=== PATIENT | female | born 1955 | race Caucasian/White ===

== ENCOUNTER 2025-07-30 07:30 | Outpatient (RCR) | payer OTHER, MEDICARE, SELFPAY ==
--- NOTE | 2025-03-14 09:02 | PT.OIE ---
Current Diagnoses Pain in right hip (03/13/25) Sciatica, unspecified side (03/13/25) Vertebrogenic low back pain (03/13/25) Visit Care Team Role Provider Type Jamee Unger MD Attending Provider Non-Staff Primary Care Provider Referring Provider Specialty: Infectious Disease Internal Medicine Address: [address] [place] [id number], [id number] Email: Physical Therapy Initial Evaluation PT-OP-A Visit Information Start: 03/14/25 08:44 Freq: Status: Active Protocol: Document 03/13/25 15:15 KW (Rec: 03/14/25 09:02 KW Laptop) Out-Patient Physical Therapy Visit Information Visit Information Visit Type Initial Evaluation Visit Start Time 15:15 Visit Stop Time 16:00 Visit Number 10/08 Evaluation Information Evaluation Date 03/13/25 PT-OP-B Current Condition Start: 03/14/25 08:44 Freq: Status: Active Protocol: Document 03/13/25 15:15 KW (Rec: 03/14/25 09:02 KW Laptop) Current Condition History of Current Condition Onset Date October 2024 Current Complaints low back pain, right hip, right thigh, B calves,. B knee pain History of Current 70 yo retired female, comes to PT with low back pain, Condition hip pain that feels like an iron alistair thru her hip. She enjoys sailing with her . does not do formal exercise due to pain in knees. She is trying to loose weight so that she can qualify for knee replacements. Significant PMHx for 2002 C5/6 lami 2003 C5/6 fusion, 2006 gal bladder removede. 2007 developed R hand weakness. 5'4 282Lb PT-OP-C Subjective Start: 03/14/25 08:44 Freq: Status: Active Protocol: Document 03/13/25 15:15 KW (Rec: 03/14/25 09:02 KW Laptop) Patient Questionnaires Oswestry Low Back Index Oswestry Score 36 Oswestry Impairment 20 to 39% Impaired (Score 20-39) OP-PT Pain Assessment Location low back Intensity 4 Scale Used Numeric (0 - 10) Description Aching,Cramping,Pinching,Pulling Frequency Frequent Pain Aggravating Position,Changing Position,ADL's,Activity,Exercise Factors Pain Alleviating Cold,Heat,Medication,Inactivity Factors R hip Intensity 2 Scale Used Numeric (0 - 10) Description Aching,Cramping,Pinching,Pulling Frequency Frequent Pain Aggravating Changing Position,ADL's,Activity,Exercise,Standing, Factors Walking Pain Alleviating Cold,Heat,Medication,Inactivity Factors PT-OP-D Balance Start: 03/14/25 08:44 Freq: Status: Active Protocol: Document 03/13/25 15:15 KW (Rec: 03/14/25 09:02 KW Laptop) OP-PT Balance Assessment Standing Balance Static Standing Fair Balance Ability Dynamic Standing Fair Balance Ability Standing Balance challenge with tandem, narrow SUSANNA, unable to do head Comments turns Deleon Fall Scale Copyright Permission PT-OP-G Mobility & Gait Start: 03/14/25 08:44 Freq: Status: Active Protocol: Document 03/13/25 15:15 KW (Rec: 03/14/25 09:02 KW Laptop) OP Gait Assessment Gait Gait Assistance Independent Required: Assistive Devices Assistive Device None Gait Deviations General Gait Pattern Antalgic,Decreased Stride Length PT-OP-J Posture/Palpation/Skin Start: 03/14/25 08:44 Freq: Status: Active Protocol: Document 03/13/25 15:15 KW (Rec: 03/14/25 09:02 KW Laptop) Posture Evaluation Position Standing Evaluation View Lateral Head/C-Spine Posture Forward Head T-Spine Posture Increased Kyphosis L-Spine Posture Flattened Scapula Posture (L) Protracted,(R) Protracted Arm Posture (L) Internally Rotated,(R) Internally Rotated Weight Distribution Weight Shifted Right Knee Posture (L) Genu Varus,(R) Genu Varus Palpation Assessment Location right hip Palpation Location posterior R hip Palpation Findings Soft Tissue Tightness,Spasm,Muscle Guarding PT-OP-K Range of Motion Start: 03/14/25 08:44 Freq: Status: Active Protocol: Document 03/13/25 15:15 KW (Rec: 03/14/25 09:02 KW Laptop) Hip Goniometric Range of Motion Hip right Hip ROM WFL No Testing Position Supine Flexion w/Knee 90 Flexed Straight Leg Raise 75 Internal Rotation 10 External Rotation 40 Comments stiff at end range PT-OP-L Special Tests Start: 03/14/25 08:44 Freq: Status: Active Protocol: Document 03/13/25 15:15 KW (Rec: 03/14/25 09:02 KW Laptop) Special Tests Hip Special Tests CORIN Test Results positive PT-OP-M Strength Start: 03/14/25 08:44 Freq: Status: Active Protocol: Document 03/13/25 15:15 KW (Rec: 03/14/25 09:02 KW Laptop) Hip Strength Hip Manual Muscle Testing Right Flexion (L2) 4- Good- Extension (S1) 4- Good- Abduction 4- Good- External Rotation 4- Good- Knee Strength Knee Manual Muscle Testing Right Flexion (S2) 4- Good- Extension (L3) 4- Good- PT-OP-Q Treatments Start: 03/14/25 08:44 Freq: Status: Active Protocol: Document 03/13/25 15:15 KW (Rec: 03/14/25 09:02 KW Laptop) Therapeutic Exercises Supine Exercises hip stretches Supine Exercise Name CORIN, breathing, no handouts today Side right Self-Care/Home Management Treatment Education Patient Education Body Mechanics,Fall Risk,Home Exercise Program,Joint Protection,Pain Management,Posture Other Education shoe education, handouts issued PT-OP-T Assessment and Plan Start: 03/14/25 08:44 Freq: Status: Active Protocol: Document 03/13/25 15:15 KW (Rec: 03/14/25 09:02 KW Laptop) Physical Therapy Assessment Rehab Potential Rehabilitation Fair Potential Evaluation Complexity Number of Personal 3 or More Factors/ Comorbidities Number of Body 4 or More Systems Impaired Clinical Evolving Presentation at Evaluation Impairments Impairments Activity Tolerance,Balance,Functional Activities, Functional Mobility,Gait,Pain,Posture,ROM,Strength Goals Three Impairment impaired R hip strength Short Term Goal (STG R hip strength improves to 4/5 ) STG Duration 6 weeks Two Impairment pain with walking Short Term Goal (STG patient with 50% improved R hip and LBP with walking ) STG Duration 6 weeks One Impairment lack of HEP Short Term Goal (STG patient demonstrates indep with HEP ) STG Duration 6 weeks Assessment Summary Assessment 70 yo sedentary female, presents to PT with co LBP, R hip pain. She will benefit from skilled PT to address deficits in ROM, strength in order to reduce pain and maximize function. Physical Therapy Plan Frequency and Duration Frequency of 1x/Week Treatment Duration of 6 treatment (weeks) Plan of Care Start 03/14/25 Date Plan of Care End 05/14/25 Date Therapeutic Interventions Therapeutic Balance Training,Gait Training,Home Exercise Program, Interventions Joint Mobilizations,Manual Therapy,Neuromuscular Re- education,Patient/Caregiver Education,Self-Care/Home Management,Soft Tissue Mobilization,Taping,Therapeutic Activities,Therapeutic Exercises Modalities Cold Pack/Ice Massage,Electric Stimulation,Hot Packs, Ultrasound Next Visit Focus/Plan Next Note Type Treatment Note Next Visit Plan nu step // bars balance HEP: mobility, strength add hip abd,band, needs handout
--- NOTE | 2025-03-15 16:22 | PT.OTN ---
Current Diagnoses Pain in right hip (03/15/25) Sciatica, unspecified side (03/15/25) Vertebrogenic low back pain (03/15/25) Physical Therapy Treatment Note PT-OP-A Visit Information Start: 03/14/25 08:44 Freq: Status: Active Protocol: Document 03/15/25 16:18 KW (Rec: 03/15/25 16:22 KW Laptop) Out-Patient Physical Therapy Visit Information Visit Information Visit Type Treatment Note Visit Start Time 15:15 Visit Stop Time 06:00 Visit Number 2/6 Evaluation Information Evaluation Date 03/13/25 PT-OP-B Current Condition Start: 03/14/25 08:44 Freq: Status: Active Protocol: Document 03/13/25 15:15 KW (Rec: 03/14/25 09:02 KW Laptop) Current Condition History of Current Condition Onset Date October 2024 Current Complaints low back pain, right hip, right thigh, B calves,. B knee pain History of Current 70 yo retired female, comes to PT with low back pain, Condition hip pain that feels like an iron alistair thru her hip. She enjoys sailing with her . does not do formal exercise due to pain in knees. She is trying to loose weight so that she can qualify for knee replacements. Significant PMHx for 2001 C5/6 lami 2003 C5/6 fusion, 2006 gal bladder removede. 2007 developed R hand weakness. 5'4 282Lb PT-OP-C Subjective Start: 03/14/25 08:44 Freq: Status: Active Protocol: Document 03/15/25 16:18 KW (Rec: 03/15/25 16:22 KW Laptop) Patient Questionnaires Oswestry Low Back Index Oswestry Score 36 Oswestry Impairment 20 to 39% Impaired (Score 20-39) OP-PT Pain Assessment Location low back Intensity 2 Scale Used Numeric (0 - 10) Description Aching,Cramping,Pinching,Pulling Frequency Frequent Pain Aggravating Position,Changing Position,ADL's,Activity,Exercise Factors Pain Alleviating Cold,Heat,Medication,Inactivity Factors R hip Intensity 2 Scale Used Numeric (0 - 10) Description Aching,Cramping,Pinching,Pulling Frequency Frequent Pain Aggravating Changing Position,ADL's,Activity,Exercise,Standing, Factors Walking Pain Alleviating Cold,Heat,Medication,Inactivity Factors PT-OP-D Balance Start: 03/14/25 08:44 Freq: Status: Active Protocol: Document 03/13/25 15:15 KW (Rec: 03/14/25 09:02 KW Laptop) OP-PT Balance Assessment Standing Balance Static Standing Fair Balance Ability Dynamic Standing Fair Balance Ability Standing Balance challenge with tandem, narrow SUSANNA, unable to do head Comments turns Deleon Fall Scale Copyright Permission PT-OP-G Mobility & Gait Start: 03/14/25 08:44 Freq: Status: Active Protocol: Document 03/13/25 15:15 KW (Rec: 03/14/25 09:02 KW Laptop) OP Gait Assessment Gait Gait Assistance Independent Required: Assistive Devices Assistive Device None Gait Deviations General Gait Pattern Antalgic,Decreased Stride Length PT-OP-J Posture/Palpation/Skin Start: 03/14/25 08:44 Freq: Status: Active Protocol: Document 03/13/25 15:15 KW (Rec: 03/14/25 09:02 KW Laptop) Posture Evaluation Position Standing Evaluation View Lateral Head/C-Spine Posture Forward Head T-Spine Posture Increased Kyphosis L-Spine Posture Flattened Scapula Posture (L) Protracted,(R) Protracted Arm Posture (L) Internally Rotated,(R) Internally Rotated Weight Distribution Weight Shifted Right Knee Posture (L) Genu Varus,(R) Genu Varus Palpation Assessment Location right hip Palpation Location posterior R hip Palpation Findings Soft Tissue Tightness,Spasm,Muscle Guarding PT-OP-K Range of Motion Start: 03/14/25 08:44 Freq: Status: Active Protocol: Document 03/13/25 15:15 KW (Rec: 03/14/25 09:02 KW Laptop) Hip Goniometric Range of Motion Hip right Hip ROM WFL No Testing Position Supine Flexion w/Knee 90 Flexed Straight Leg Raise 75 Internal Rotation 10 External Rotation 40 Comments stiff at end range PT-OP-L Special Tests Start: 03/14/25 08:44 Freq: Status: Active Protocol: Document 03/13/25 15:15 KW (Rec: 03/14/25 09:02 KW Laptop) Special Tests Hip Special Tests CORIN Test Results positive PT-OP-M Strength Start: 03/14/25 08:44 Freq: Status: Active Protocol: Document 03/13/25 15:15 KW (Rec: 03/14/25 09:02 KW Laptop) Hip Strength Hip Manual Muscle Testing Right Flexion (L2) 4- Good- Extension (S1) 4- Good- Abduction 4- Good- External Rotation 4- Good- Knee Strength Knee Manual Muscle Testing Right Flexion (S2) 4- Good- Extension (L3) 4- Good- PT-OP-Q Treatments Start: 03/14/25 08:44 Freq: Status: Active Protocol: Document 03/15/25 16:18 KW (Rec: 03/15/25 16:22 KW Laptop) Therapeutic Exercises Supine Exercises hip stretches Supine Exercise Name CORIN, breathing, patient brings in prior handouts from prior PT - reviewed Side right Manual Therapy Treatment Consent Patient gave verbal Yes consent for manual treatment Soft Tissue Mobilization R hip lumbar spine Body Location R hip, lumbar spine Mobilization Type Cross-Friction,Myofascial Release,Strain/Counterstrain, Sustained Pressure,Trigger Point Release Comments tennis ball to posterior hpi Joint Mobilizations R hip Joint R hip Direction inferior/lateral Grade III Body Position Supine Reps/Duration 5 min Comments good relief Self-Care/Home Management Treatment Education Patient Education Body Mechanics,Fall Risk,Home Exercise Program,Joint Protection,Pain Management,Posture Other Education shoe education, handouts issued, heel lock lacing technique PT-OP-T Assessment and Plan Start: 03/14/25 08:44 Freq: Status: Active Protocol: Document 03/15/25 16:18 KW (Rec: 03/15/25 16:22 KW Laptop) Physical Therapy Assessment Rehab Potential Rehabilitation Fair Potential Evaluation Complexity Number of Personal 3 or More Factors/ Comorbidities Number of Body 4 or More Systems Impaired Clinical Evolving Presentation at Evaluation Impairments Impairments Activity Tolerance,Balance,Functional Activities, Functional Mobility,Gait,Pain,Posture,ROM,Strength Goals Three Impairment impaired R hip strength Short Term Goal (STG R hip strength improves to 4/5 ) STG Duration 6 weeks Two Impairment pain with walking Short Term Goal (STG patient with 50% improved R hip and LBP with walking ) STG Duration 6 weeks One Impairment lack of HEP Short Term Goal (STG patient demonstrates indep with HEP ) STG Duration 6 weeks Assessment Summary Assessment improved relief R hip post Rx walking more secure with shoe lacing Physical Therapy Plan Frequency and Duration Frequency of 1x/Week Treatment Duration of 6 treatment (weeks) Plan of Care Start 03/14/25 Date Plan of Care End 05/14/25 Date Therapeutic Interventions Therapeutic Balance Training,Gait Training,Home Exercise Program, Interventions Joint Mobilizations,Manual Therapy,Neuromuscular Re- education,Patient/Caregiver Education,Self-Care/Home Management,Soft Tissue Mobilization,Taping,Therapeutic Activities,Therapeutic Exercises Modalities Cold Pack/Ice Massage,Electric Stimulation,Hot Packs, Ultrasound Next Visit Focus/Plan Next Note Type Treatment Note Next Visit Plan nu step // bars balance HEP: mobility, strength add hip abd,band, needs handout
--- NOTE | 2025-03-18 09:36 | PT-OP ANOTE ---
Pt called and cancelled today's appt in advance. [employer] left message inquiring of cancelled appt and mentioned there are openings can reschedule today's appt, please call back. Reminded next appt scheduled 03/28 with PT. PER[employer] DEVELOPER also mentioned sent a message up to schedulers to add more appts 1x/wk into end April per POC written.
--- NOTE | 2025-03-28 10:27 | PT.OTN ---
Current Diagnoses Pain in right hip (03/28/25) Sciatica, unspecified side (03/28/25) Vertebrogenic low back pain (03/28/25) Physical Therapy Treatment Note PT-OP-A Visit Information Start: 03/14/25 08:44 Freq: Status: Active Protocol: Document 03/28/25 10:07 KW (Rec: 03/28/25 10:27 KW Laptop) Out-Patient Physical Therapy Visit Information Visit Information Visit Type Treatment Note Visit Start Time 09:45 Visit Stop Time 10:30 Visit Number 3/6 Evaluation Information Evaluation Date 03/13/25 PT-OP-B Current Condition Start: 03/14/25 08:44 Freq: Status: Active Protocol: Document 03/13/25 15:15 KW (Rec: 03/14/25 09:02 KW Laptop) Current Condition History of Current Condition Onset Date October 2024 Current Complaints low back pain, right hip, right thigh, B calves,. B knee pain History of Current 70 yo retired female, comes to PT with low back pain, Condition hip pain that feels like an iron alistair thru her hip. She enjoys sailing with her . does not do formal exercise due to pain in knees. She is trying to loose weight so that she can qualify for knee replacements. Significant PMHx for 2001 C5/6 lami 2003 C5/6 fusion, 2006 gal bladder removede. 2007 developed R hand weakness. 5'4 282Lb PT-OP-C Subjective Start: 03/14/25 08:44 Freq: Status: Active Protocol: Document 03/28/25 10:07 KW (Rec: 03/28/25 10:27 KW Laptop) Patient Questionnaires Oswestry Low Back Index Oswestry Score 36 Oswestry Impairment 20 to 39% Impaired (Score 20-39) OP-PT Pain Assessment Location low back Intensity 2 Scale Used Numeric (0 - 10) Description Aching,Cramping,Pinching,Pulling Frequency Frequent Pain Aggravating Position,Changing Position,ADL's,Activity,Exercise Factors Pain Alleviating Cold,Heat,Medication,Inactivity Factors R hip Intensity 2 Scale Used Numeric (0 - 10) Description Aching,Cramping,Pinching,Pulling Frequency Frequent Pain Aggravating Changing Position,ADL's,Activity,Exercise,Standing, Factors Walking Pain Alleviating Cold,Heat,Medication,Inactivity Factors PT-OP-D Balance Start: 03/14/25 08:44 Freq: Status: Active Protocol: Document 03/13/25 15:15 KW (Rec: 03/14/25 09:02 KW Laptop) OP-PT Balance Assessment Standing Balance Static Standing Fair Balance Ability Dynamic Standing Fair Balance Ability Standing Balance challenge with tandem, narrow SUSANNA, unable to do head Comments turns Deleon Fall Scale Copyright Permission PT-OP-G Mobility & Gait Start: 03/14/25 08:44 Freq: Status: Active Protocol: Document 03/13/25 15:15 KW (Rec: 03/14/25 09:02 KW Laptop) OP Gait Assessment Gait Gait Assistance Independent Required: Assistive Devices Assistive Device None Gait Deviations General Gait Pattern Antalgic,Decreased Stride Length PT-OP-J Posture/Palpation/Skin Start: 03/14/25 08:44 Freq: Status: Active Protocol: Document 03/13/25 15:15 KW (Rec: 03/14/25 09:02 KW Laptop) Posture Evaluation Position Standing Evaluation View Lateral Head/C-Spine Posture Forward Head T-Spine Posture Increased Kyphosis L-Spine Posture Flattened Scapula Posture (L) Protracted,(R) Protracted Arm Posture (L) Internally Rotated,(R) Internally Rotated Weight Distribution Weight Shifted Right Knee Posture (L) Genu Varus,(R) Genu Varus Palpation Assessment Location right hip Palpation Location posterior R hip Palpation Findings Soft Tissue Tightness,Spasm,Muscle Guarding PT-OP-K Range of Motion Start: 03/14/25 08:44 Freq: Status: Active Protocol: Document 03/13/25 15:15 KW (Rec: 03/14/25 09:02 KW Laptop) Hip Goniometric Range of Motion Hip right Hip ROM WFL No Testing Position Supine Flexion w/Knee 90 Flexed Straight Leg Raise 75 Internal Rotation 10 External Rotation 40 Comments stiff at end range PT-OP-L Special Tests Start: 03/14/25 08:44 Freq: Status: Active Protocol: Document 03/13/25 15:15 KW (Rec: 03/14/25 09:02 KW Laptop) Special Tests Hip Special Tests CORIN Test Results positive PT-OP-M Strength Start: 03/14/25 08:44 Freq: Status: Active Protocol: Document 03/13/25 15:15 KW (Rec: 03/14/25 09:02 KW Laptop) Hip Strength Hip Manual Muscle Testing Right Flexion (L2) 4- Good- Extension (S1) 4- Good- Abduction 4- Good- External Rotation 4- Good- Knee Strength Knee Manual Muscle Testing Right Flexion (S2) 4- Good- Extension (L3) 4- Good- PT-OP-Q Treatments Start: 03/14/25 08:44 Freq: Status: Active Protocol: Document 03/28/25 10:07 KW (Rec: 03/28/25 10:27 KW Laptop) Therapeutic Exercises Supine Exercises CORE stabilization Supine Exercise Name supine marching, bent knee fall outs, heel slides Reps/Minutes 30 sec each Comments cues for breathing strap stretch Supine Exercise Name hamstring stretch with ankle pump physioball Supine Exercise Name supine hamstring curls, LTR, bridge hip stretches Supine Exercise Name CORIN, breathing, patient brings in prior handouts from prior PT - reviewed Side right Sidelying Exercises open book Sidelying Exercise open book with top leg on bolster - handout issued Name Reps/Minutes 10 Comments coordinated breathing Manual Therapy Treatment Consent Patient gave verbal Yes consent for manual treatment Soft Tissue Mobilization R hip lumbar spine Body Location R hip, lumbar spine Mobilization Type Cross-Friction,Myofascial Release,Strain/Counterstrain, Sustained Pressure,Trigger Point Release Comments manual supported Thoracic rotation with open book exercise Joint Mobilizations R hip Joint R hip Direction inferior/lateral Grade III Body Position Supine Reps/Duration 5 min Comments good relief Self-Care/Home Management Treatment Education Patient Education Body Mechanics,Fall Risk,Home Exercise Program,Joint Protection,Pain Management,Posture Other Education bed positioning to reduce muscle cramps PT-OP-T Assessment and Plan Start: 03/14/25 08:44 Freq: Status: Active Protocol: Document 03/28/25 10:07 KW (Rec: 03/28/25 10:27 KW Laptop) Physical Therapy Assessment Rehab Potential Rehabilitation Fair Potential Evaluation Complexity Number of Personal 3 or More Factors/ Comorbidities Number of Body 4 or More Systems Impaired Clinical Evolving Presentation at Evaluation Impairments Impairments Activity Tolerance,Balance,Functional Activities, Functional Mobility,Gait,Pain,Posture,ROM,Strength Goals Three Impairment impaired R hip strength Short Term Goal (STG R hip strength improves to 4/5 ) STG Duration 6 weeks Two Impairment pain with walking Short Term Goal (STG patient with 50% improved R hip and LBP with walking ) STG Duration 6 weeks One Impairment lack of HEP Short Term Goal (STG patient demonstrates indep with HEP ) STG Duration 6 weeks Assessment Summary Assessment R shoulder pain has relieved for today R hip pain significantly improved no pain during ther-ex, bed mobility, sit to stand or ambulation today Physical Therapy Plan Frequency and Duration Frequency of 1x/Week Treatment Duration of 6 treatment (weeks) Plan of Care Start 03/14/25 Date Plan of Care End 05/14/25 Date Therapeutic Interventions Therapeutic Balance Training,Gait Training,Home Exercise Program, Interventions Joint Mobilizations,Manual Therapy,Neuromuscular Re- education,Patient/Caregiver Education,Self-Care/Home Management,Soft Tissue Mobilization,Taping,Therapeutic Activities,Therapeutic Exercises Modalities Cold Pack/Ice Massage,Electric Stimulation,Hot Packs, Ultrasound Next Visit Focus/Plan Next Note Type Treatment Note Next Visit Plan nu step // bars balance HEP: mobility, strength add hip abd,band, needs handout
--- NOTE | 2025-04-02 09:00 | PT.OTN ---
Current Diagnoses Pain in right hip (04/02/25) Sciatica, unspecified side (04/02/25) Vertebrogenic low back pain (04/02/25) Physical Therapy Treatment Note PT-OP-A Visit Information Start: 03/14/25 08:44 Freq: Status: Active Protocol: Document 04/02/25 08:20 SP (Rec: 04/02/25 09:02 SP [id number]) Out-Patient Physical Therapy Visit Information Visit Information Visit Type Treatment Note Visit Start Time 08:20 Visit Stop Time 09:00 Visit Number 4/6 Number of STATE MANAGER Visits 1 Evaluation Information Evaluation Date 03/13/25 PT-OP-B Current Condition Start: 03/14/25 08:44 Freq: Status: Active Protocol: Document 03/13/25 15:15 KW (Rec: 03/14/25 09:02 KW Laptop) Current Condition History of Current Condition Onset Date chronic, October 2024 Current Complaints low back pain, right hip, right thigh, B calves,. B knee pain History of Current 70 yo retired female, comes to PT with low back pain, Condition hip pain that feels like an iron alistair thru her hip. She enjoys sailing with her . does not do formal exercise due to pain in knees. She is trying to loose weight so that she can qualify for knee replacements. Significant PMHx for 2001 C5/6 lami 2003 C5/6 fusion, 2006 gal bladder removede. 2007 developed R hand weakness. 5'4 282Lb PT-OP-C Subjective Start: 03/14/25 08:44 Freq: Status: Active Protocol: Document 04/02/25 08:20 SP (Rec: 04/02/25 09:02 SP [id number]) OP-PT Subjective Patient Comments Patient Comments Pt arrives with R lateral hip down anterolateral thigh and low back discomfort had spasms at night, took muscle relaxers to help. She states compliant with HEP. PT-OP-D Balance Start: 03/14/25 08:44 Freq: Status: Active Protocol: Document 03/13/25 15:15 KW (Rec: 03/14/25 09:02 KW Laptop) OP-PT Balance Assessment Standing Balance Static Standing Fair Balance Ability Dynamic Standing Fair Balance Ability Standing Balance challenge with tandem, narrow SUSANNA, unable to do head Comments turns Deleon Fall Scale Copyright Permission PT-OP-G Mobility & Gait Start: 03/14/25 08:44 Freq: Status: Active Protocol: Document 03/13/25 15:15 KW (Rec: 03/14/25 09:02 KW Laptop) OP Gait Assessment Gait Gait Assistance Independent Required: Assistive Devices Assistive Device None Gait Deviations General Gait Pattern Antalgic,Decreased Stride Length PT-OP-J Posture/Palpation/Skin Start: 03/14/25 08:44 Freq: Status: Active Protocol: Document 03/13/25 15:15 KW (Rec: 03/14/25 09:02 KW Laptop) Posture Evaluation Position Standing Evaluation View Lateral Head/C-Spine Posture Forward Head T-Spine Posture Increased Kyphosis L-Spine Posture Flattened Scapula Posture (L) Protracted,(R) Protracted Arm Posture (L) Internally Rotated,(R) Internally Rotated Weight Distribution Weight Shifted Right Knee Posture (L) Genu Varus,(R) Genu Varus Palpation Assessment Location right hip Palpation Location posterior R hip Palpation Findings Soft Tissue Tightness,Spasm,Muscle Guarding PT-OP-K Range of Motion Start: 03/14/25 08:44 Freq: Status: Active Protocol: Document 03/13/25 15:15 KW (Rec: 03/14/25 09:02 KW Laptop) Hip Goniometric Range of Motion Hip right Hip ROM WFL No Testing Position Supine Flexion w/Knee 90 Flexed Straight Leg Raise 75 Internal Rotation 10 External Rotation 40 Comments stiff at end range PT-OP-L Special Tests Start: 03/14/25 08:44 Freq: Status: Active Protocol: Document 03/13/25 15:15 KW (Rec: 03/14/25 09:02 KW Laptop) Special Tests Hip Special Tests CORIN Test Results positive PT-OP-M Strength Start: 03/14/25 08:44 Freq: Status: Active Protocol: Document 03/13/25 15:15 KW (Rec: 03/14/25 09:02 KW Laptop) Hip Strength Hip Manual Muscle Testing Right Flexion (L2) 4- Good- Extension (S1) 4- Good- Abduction 4- Good- External Rotation 4- Good- Knee Strength Knee Manual Muscle Testing Right Flexion (S2) 4- Good- Extension (L3) 4- Good- PT-OP-Q Treatments Start: 03/14/25 08:44 Freq: Status: Active Protocol: Document 04/02/25 08:20 SP (Rec: 04/02/25 09:02 SP [id number]) Therapeutic Exercises Supine Exercises bridge Supine Exercise Name trialed AB brace vs segmental- added to HEP with HO Reps/Minutes 10 reps Sathya Stretch Supine Exercise Name reviewed self Ex Side right Reps/Minutes 30-60 sec Comments if toleranted, neutral LS pelvic tilts Supine Exercise Name warm up pre get out of bed Reps/Minutes 10 Comments fwd/bwd/lateral LTR Supine Exercise Name warm up pre out of bed- with HO Side bilateral Reps/Minutes 10 Comments 1. level pelvis on bed 2. Off 1side stretch CORE stabilization Supine Exercise Name supine marching, bent knee fall outs, heel slides- reviewed and added HO Resistance AROM Reps/Minutes 30 sec each alternating Comments cues PPT level pelvis on table, slow breath with exhale strap stretch Comments discussed, not performed, next review and add ITB stretch if beneficial Gait Training Gait Activity High knee stepping Description initiated high knee stepping Distance/Duration front mirror 10 ft x3 lengths Treatment Focus SLS stability during gait, core and hip abd engagement Comments cued trunk&ribcage elevation, TA draw in, tall over stance LE and soft stepping heel toe improved stability Manual Therapy Treatment Consent Patient gave verbal Yes consent for manual treatment Soft Tissue Mobilization R hip lumbar spine Body Location R ITB, TFL, piriformis, glut med, glut max, QL, LS paraspinal, oblique Mobilization Type Myofascial Release,Rolling,Sustained Pressure,Other Body Position L SL Comments manual STMs with education self ball wall and rolling pin. Joint Mobilizations R hip Joint R hip- PNF Grade II Body Position L SL Comments manual facilitation then resisted: anterior elevation/ posterior depression- decrease R low back and hip tightness and fac core and glut engagement PNF Self-Care/Home Management Treatment Education Patient Education Body Mechanics,Joint Protection,Pain Management,Posture Other Education Education on anatomy of back, hip and mechanics with core facilitation, ROM and self massage to support gait balance progression. Improved understanding ther ex selection and importance of carryover home performance. PT-OP-T Assessment and Plan Start: 03/14/25 08:44 Freq: Status: Active Protocol: Document 04/02/25 08:20 SP (Rec: 04/02/25 09:02 SP [id number]) Physical Therapy Assessment Goals Three Impairment impaired R hip strength Short Term Goal (STG R hip strength improves to 4/5 ) STG Duration 6 weeks Two Impairment pain with walking Short Term Goal (STG patient with 50% improved R hip and LBP with walking ) STG Duration 6 weeks One Impairment lack of HEP Short Term Goal (STG patient demonstrates indep with HEP ) STG Duration 6 weeks Assessment Summary Assessment Pt good feedback response to manual STMs, AAROM then resisted PNF anteromedial and posterior depression R hip. Much education on anatomy and mechanics of core and hip mobility for ROM when hurting, walking and balance progression by end of tx. Provided HOs for added warm up trunk and hip mobility and reviewed core progression HEP with additional HOs. Instruction carryover in PT for applying posture and core engagement improved balance high knee stepping. Better understood for community gait. Physical Therapy Plan Frequency and Duration Frequency of 1x/Week Treatment Duration of 6 treatment (weeks) Plan of Care Start 03/14/25 Date Plan of Care End 05/14/25 Date Therapeutic Interventions Therapeutic Balance Training,Gait Training,Home Exercise Program, Interventions Joint Mobilizations,Manual Therapy,Neuromuscular Re- education,Patient/Caregiver Education,Self-Care/Home Management,Soft Tissue Mobilization,Taping,Therapeutic Activities,Therapeutic Exercises Modalities Cold Pack/Ice Massage,Electric Stimulation,Hot Packs, Ultrasound Next Visit Focus/Plan Next Note Type Treatment Note Next Visit Plan Recheck HEP, ROM/stretching/core progression. POC: warm up nu step // bars balance HEP: mobility, strength add hip abd,band, needs handout
--- NOTE | 2025-04-11 09:02 | PT.OTN ---
Current Diagnoses Pain in right hip (04/11/25) Sciatica, unspecified side (04/11/25) Vertebrogenic low back pain (04/11/25) Physical Therapy Treatment Note PT-OP-A Visit Information Start: 03/14/25 08:44 Freq: Status: Active Protocol: Document 04/11/25 07:40 KW (Rec: 04/11/25 09:02 KW Laptop) Out-Patient Physical Therapy Visit Information Visit Information Visit Type Progress Note Visit Start Time 07:30 Visit Stop Time 08:15 Visit Number 5/6 Evaluation Information Evaluation Date 03/13/25 PT-OP-B Current Condition Start: 03/14/25 08:44 Freq: Status: Active Protocol: Document 04/11/25 07:40 KW (Rec: 04/11/25 09:02 KW Laptop) Current Condition History of Current Condition Onset Date October 2024 Current Complaints low back pain, right hip, right thigh, B calves,. B knee pain History of Current 70 yo retired female, comes to PT with low back pain, Condition hip pain that feels like an iron alistair thru her hip. She enjoys sailing with her . does not do formal exercise due to pain in knees. She is trying to loose weight so that she can qualify for knee replacements. Significant PMHx for 2002 C5/6 lami 2004 C5/6 fusion, 2006 gal bladder removede. 2007 developed R hand weakness. 5'4 282Lb PT-OP-C Subjective Start: 03/14/25 08:44 Freq: Status: Active Protocol: Document 04/11/25 07:40 KW (Rec: 04/11/25 09:02 KW Laptop) OP-PT Subjective Patient Comments Patient Comments is spending more time on the sailboat. R hip is feeling much better. is feeling more balanced with walking. Patient Questionnaires Oswestry Low Back Index Oswestry Score 20 Oswestry Impairment 20 to 39% Impaired (Score 20-39) OP-PT Pain Assessment Location low back Intensity 1 Scale Used Numeric (0 - 10) Description Aching,Cramping,Pinching,Pulling Frequency Frequent Pain Aggravating Position,Changing Position,ADL's,Activity,Exercise Factors Pain Alleviating Cold,Heat,Medication,Inactivity Factors R hip Intensity 1 Scale Used Numeric (0 - 10) Description Aching,Cramping,Pinching,Pulling Frequency Frequent Pain Aggravating Changing Position,ADL's,Activity,Exercise,Standing, Factors Walking Pain Alleviating Cold,Heat,Medication,Inactivity Factors PT-OP-D Balance Start: 03/14/25 08:44 Freq: Status: Active Protocol: Document 04/11/25 07:40 KW (Rec: 04/11/25 09:02 KW Laptop) OP-PT Balance Assessment Standing Balance Static Standing Good Balance Ability Dynamic Standing Good Balance Ability Standing Balance challenge with tandem, narrow SUSANNA, unable to do head Comments turns - improving with better spinal/rib cage alignment Deleon Fall Scale Copyright Permission PT-OP-G Mobility & Gait Start: 03/14/25 08:44 Freq: Status: Active Protocol: Document 04/11/25 07:40 KW (Rec: 04/11/25 09:02 KW Laptop) OP Gait Assessment Gait Gait Assistance Independent Required: Assistive Devices Assistive Device None Gait Deviations General Gait Pattern Antalgic,Decreased Stride Length Comments Gait Comments improving with arm swing, counter rotation, alternating and reciprocal gait PT-OP-J Posture/Palpation/Skin Start: 03/14/25 08:44 Freq: Status: Active Protocol: Document 04/11/25 07:40 KW (Rec: 04/11/25 09:02 KW Laptop) Posture Evaluation Position Standing Evaluation View Lateral Head/C-Spine Posture Forward Head T-Spine Posture Increased Kyphosis L-Spine Posture Neutral,Flattened Scapula Posture (L) Protracted,(R) Protracted Arm Posture (L) Internally Rotated,(R) Internally Rotated Weight Distribution Weight Shifted Right Knee Posture (L) Genu Varus,(R) Genu Varus Palpation Assessment Location right hip Palpation Location posterior R hip Palpation Findings Soft Tissue Tightness,Spasm,Muscle Guarding PT-OP-K Range of Motion Start: 03/14/25 08:44 Freq: Status: Active Protocol: Document 04/11/25 07:40 KW (Rec: 04/11/25 09:02 KW Laptop) Hip Goniometric Range of Motion Hip right Hip ROM WFL No Testing Position Supine Flexion w/Knee 95 Flexed Straight Leg Raise 80 Internal Rotation 20 External Rotation 45 Comments stiff at end range - improving PT-OP-L Special Tests Start: 03/14/25 08:44 Freq: Status: Active Protocol: Document 04/11/25 07:40 KW (Rec: 04/11/25 09:02 KW Laptop) Special Tests Hip Special Tests CORIN Test Results (-) PT-OP-M Strength Start: 03/14/25 08:44 Freq: Status: Active Protocol: Document 04/11/25 07:40 KW (Rec: 04/11/25 09:02 KW Laptop) Hip Strength Hip Manual Muscle Testing Right Flexion (L2) 4 Good Extension (S1) 4 Good Abduction 4 Good External Rotation 4 Good Knee Strength Knee Manual Muscle Testing Right Flexion (S2) 4 Good Extension (L3) 4 Good PT-OP-Q Treatments Start: 03/14/25 08:44 Freq: Status: Active Protocol: Document 04/11/25 07:40 KW (Rec: 04/11/25 09:02 KW Laptop) Therapeutic Exercises Supine Exercises bridge Supine Exercise Name trialed AB brace vs segmental- added to HEP with HO Reps/Minutes 10 reps Sathya Stretch Supine Exercise Name reviewed self Ex Side right Reps/Minutes 30-60 sec Comments if toleranted, neutral LS pelvic tilts Supine Exercise Name warm up pre get out of bed Reps/Minutes 10 Comments fwd/bwd/lateral LTR Supine Exercise Name warm up pre out of bed- with HO Side bilateral Reps/Minutes 10 Comments 1. level pelvis on bed 2. Off 1side stretch CORE stabilization Supine Exercise Name supine marching, bent knee fall outs, heel slides- reviewed and added HO Resistance AROM Reps/Minutes 30 sec each alternating Comments cues PPT level pelvis on table, slow breath with exhale strap stretch Comments discussed, not performed, next review and add ITB stretch if beneficial physioball Supine Exercise Name supine hamstring curls, LTR, bridge hip stretches Supine Exercise Name CORIN, breathing, patient brings in prior handouts from prior PT - reviewed Side right Sidelying Exercises open book Sidelying Exercise open book with top leg on bolster - handout issued Name Reps/Minutes 10 Comments coordinated breathing Manual Therapy Treatment Consent Patient gave verbal Yes consent for manual treatment Soft Tissue Mobilization R hip lumbar spine Body Location R ITB, TFL, piriformis, glut med, glut max, QL, LS paraspinal, oblique Mobilization Type Myofascial Release,Rolling,Sustained Pressure,Other Body Position L SL Comments manual STMs with education self ball wall and rolling pin. Joint Mobilizations R hip Joint R hip- PNF Grade II Body Position L SL Comments manual facilitation then resisted: anterior elevation/ posterior depression- decrease R low back and hip tightness and fac core and glut engagement PNF Self-Care/Home Management Treatment Education Patient Education Body Mechanics,Joint Protection,Pain Management,Posture Other Education continued Education on ribs, spine, hip anatomy and relationship anatomy of back, hip and mechanics with core facilitation, ROM and self massage to support gait balance progression. Improved understanding ther ex selection and importance of carryover home performance. PT-OP-T Assessment and Plan Start: 03/14/25 08:44 Freq: Status: Active Protocol: Document 04/11/25 07:40 KW (Rec: 04/11/25 09:02 KW Laptop) Physical Therapy Assessment Rehab Potential Rehabilitation Fair Potential Evaluation Complexity Number of Personal 3 or More Factors/ Comorbidities Number of Body 4 or More Systems Impaired Clinical Evolving Presentation at Evaluation Impairments Impairments Activity Tolerance,Balance,Functional Activities, Functional Mobility,Gait,Pain,Posture,ROM,Strength Goals Three Impairment impaired R hip strength Short Term Goal (STG R hip strength improves to 4/5 ) STG Duration 6 weeks Two Impairment pain with walking Short Term Goal (STG patient with 50% improved R hip and LBP with walking ) STG Duration 6 weeks One Impairment lack of HEP Short Term Goal (STG patient demonstrates indep with HEP ) STG Duration 6 weeks Assessment Summary Assessment Improving pain, ROM, strength, balance, CORE stability, breath work - recommend con't PT 6 sessions for advancing more upright dynamic stability Pt good feedback response to manual STMs, AAROM then resisted PNF anteromedial and posterior depression R hip. Much education on anatomy and mechanics of core and hip mobility for ROM when hurting, walking and balance progression by end of tx. Provided HOs for added warm up trunk and hip mobility and reviewed core progression HEP with additional HOs. Instruction carryover in PT for applying posture and core engagement improved balance high knee stepping. Better understood for community gait. Physical Therapy Plan Frequency and Duration Frequency of 1x/Week Treatment Duration of 6 treatment (weeks) Plan of Care Start 03/14/25 Date Plan of Care End 05/14/25 Date Therapeutic Interventions Therapeutic Balance Training,Gait Training,Home Exercise Program, Interventions Joint Mobilizations,Manual Therapy,Neuromuscular Re- education,Patient/Caregiver Education,Self-Care/Home Management,Soft Tissue Mobilization,Taping,Therapeutic Activities,Therapeutic Exercises Modalities Cold Pack/Ice Massage,Electric Stimulation,Hot Packs, Ultrasound Next Visit Focus/Plan Next Note Type Treatment Note Next Visit Plan Recheck HEP, ROM/stretching/core progression. POC: warm up nu step // bars balance HEP: mobility, strength add hip abd,band, needs handout
--- NOTE | 2025-04-17 14:07 | PT.OTN ---
Current Diagnoses Pain in right hip (04/17/25) Sciatica, unspecified side (04/17/25) Vertebrogenic low back pain (04/17/25) Physical Therapy Treatment Note PT-OP-A Visit Information Start: 03/14/25 08:44 Freq: Status: Active Protocol: Document 04/17/25 13:53 KW (Rec: 04/17/25 14:07 KW Laptop) Out-Patient Physical Therapy Visit Information Visit Information Visit Type Treatment Note Visit Start Time 13:50 Visit Stop Time 14:30 Visit Number 03/08 Evaluation Information Evaluation Date 03/13/25 PT-OP-B Current Condition Start: 03/14/25 08:44 Freq: Status: Active Protocol: Document 04/11/25 07:40 KW (Rec: 04/11/25 09:02 KW Laptop) Current Condition History of Current Condition Onset Date October 2024 Current Complaints low back pain, right hip, right thigh, B calves,. B knee pain History of Current 70 yo retired female, comes to PT with low back pain, Condition hip pain that feels like an iron alistair thru her hip. She enjoys sailing with her . does not do formal exercise due to pain in knees. She is trying to loose weight so that she can qualify for knee replacements. Significant PMHx for 2002 C5/6 lami 2003 C5/6 fusion, 2006 gal bladder removede. 2007 developed R hand weakness. 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 Wants to build up stamina Patient Questionnaires Oswestry Low Back Index Oswestry Score 20 Oswestry Impairment 20 to 39% Impaired (Score 20-39) OP-PT Pain Assessment Location low back Intensity 1 Scale Used Numeric (0 - 10) Description Aching,Cramping,Pinching,Pulling Frequency Frequent Pain Aggravating Position,Changing Position,ADL's,Activity,Exercise Factors Pain Alleviating Cold,Heat,Medication,Inactivity Factors R hip Intensity 1 Scale Used Numeric (0 - 10) Description Aching,Cramping,Pinching,Pulling Frequency Frequent Pain Aggravating Changing Position,ADL's,Activity,Exercise,Standing, Factors Walking Pain Alleviating Cold,Heat,Medication,Inactivity Factors PT-OP-D Balance Start: 03/14/25 08:44 Freq: Status: Active Protocol: Document 04/11/25 07:40 KW (Rec: 04/11/25 09:02 KW Laptop) OP-PT Balance Assessment Standing Balance Static Standing Good Balance Ability Dynamic Standing Good Balance Ability Standing Balance challenge with tandem, narrow SUSANNA, unable to do head Comments turns - improving with better spinal/rib cage alignment Deleon Fall Scale Copyright Permission PT-OP-G Mobility & Gait Start: 03/14/25 08:44 Freq: Status: Active Protocol: Document 04/11/25 07:40 KW (Rec: 04/11/25 09:02 KW Laptop) OP Gait Assessment Gait Gait Assistance Independent Required: Assistive Devices Assistive Device None Gait Deviations General Gait Pattern Antalgic,Decreased Stride Length Comments Gait Comments improving with arm swing, counter rotation, alternating and reciprocal gait PT-OP-J Posture/Palpation/Skin Start: 03/14/25 08:44 Freq: Status: Active Protocol: Document 04/11/25 07:40 KW (Rec: 04/11/25 09:02 KW Laptop) Posture Evaluation Position Standing Evaluation View Lateral Head/C-Spine Posture Forward Head T-Spine Posture Increased Kyphosis L-Spine Posture Neutral,Flattened Scapula Posture (L) Protracted,(R) Protracted Arm Posture (L) Internally Rotated,(R) Internally Rotated Weight Distribution Weight Shifted Right Knee Posture (L) Genu Varus,(R) Genu Varus Palpation Assessment Location right hip Palpation Location posterior R hip Palpation Findings Soft Tissue Tightness,Spasm,Muscle Guarding PT-OP-K Range of Motion Start: 03/14/25 08:44 Freq: Status: Active Protocol: Document 04/11/25 07:40 KW (Rec: 04/11/25 09:02 KW Laptop) Hip Goniometric Range of Motion Hip right Hip ROM WFL No Testing Position Supine Flexion w/Knee 95 Flexed Straight Leg Raise 80 Internal Rotation 20 External Rotation 45 Comments stiff at end range - improving PT-OP-L Special Tests Start: 03/14/25 08:44 Freq: Status: Active Protocol: Document 04/11/25 07:40 KW (Rec: 04/11/25 09:02 KW Laptop) Special Tests Hip Special Tests CORIN Test Results (-) PT-OP-M Strength Start: 03/14/25 08:44 Freq: Status: Active Protocol: Document 04/11/25 07:40 KW (Rec: 04/11/25 09:02 KW Laptop) Hip Strength Hip Manual Muscle Testing Right Flexion (L2) 4 Good Extension (S1) 4 Good Abduction 4 Good External Rotation 4 Good Knee Strength Knee Manual Muscle Testing Right Flexion (S2) 4 Good Extension (L3) 4 Good PT-OP-Q Treatments Start: 03/14/25 08:44 Freq: Status: Active Protocol: Document 04/17/25 13:53 KW (Rec: 04/17/25 14:07 KW Laptop) Therapeutic Exercises Supine Exercises bridge Supine Exercise Name trialed AB brace vs segmental- added to HEP with HO Reps/Minutes 10 reps Sathya Stretch Supine Exercise Name reviewed self Ex Side right Reps/Minutes 30-60 sec Comments if toleranted, neutral LS pelvic tilts Supine Exercise Name warm up pre get out of bed Reps/Minutes 10 Comments fwd/bwd/lateral LTR Supine Exercise Name warm up pre out of bed- with HO Side bilateral Reps/Minutes 10 Comments 1. level pelvis on bed 2. Off 1side stretch CORE stabilization Supine Exercise Name supine marching, bent knee fall outs, heel slides- reviewed and added HO Resistance AROM Reps/Minutes 30 sec each alternating Comments cues PPT level pelvis on table, slow breath with exhale strap stretch Comments discussed, not performed, next review and add ITB stretch if beneficial physioball Supine Exercise Name supine hamstring curls, LTR, bridge hip stretches Supine Exercise Name CORIN, breathing, patient brings in prior handouts from prior PT - reviewed Side right Sidelying Exercises open book Sidelying Exercise open book with top leg on bolster - handout issued Name Reps/Minutes 10 Comments coordinated breathing Manual Therapy Treatment Consent Patient gave verbal Yes consent for manual treatment Soft Tissue Mobilization R hip lumbar spine Body Location R ITB, TFL, piriformis, glut med, glut max, QL, LS paraspinal, oblique Mobilization Type Myofascial Release,Rolling,Sustained Pressure,Other Body Position L SL Comments manual STMs with education self ball wall and rolling pin. Joint Mobilizations R hip Joint R hip- PNF Grade II Body Position L SL Comments manual facilitation then resisted: anterior elevation/ posterior depression- decrease R low back and hip tightness and fac core and glut engagement PNF Self-Care/Home Management Treatment Education Patient Education Body Mechanics,Joint Protection,Pain Management,Posture Other Education continued Education on ribs, spine, hip anatomy and relationship anatomy of back, hip and mechanics with core facilitation, ROM and self massage to support gait balance progression. Improved understanding ther ex selection and importance of carryover home performance. PT-OP-T Assessment and Plan Start: 03/14/25 08:44 Freq: Status: Active Protocol: Document 04/17/25 13:53 KW (Rec: 04/17/25 14:07 KW Laptop) Physical Therapy Assessment Rehab Potential Rehabilitation Fair Potential Evaluation Complexity Number of Personal 3 or More Factors/ Comorbidities Number of Body 4 or More Systems Impaired Clinical Evolving Presentation at Evaluation Impairments Impairments Activity Tolerance,Balance,Functional Activities, Functional Mobility,Gait,Pain,Posture,ROM,Strength Goals Three Impairment impaired R hip strength Short Term Goal (STG R hip strength improves to 4/5 ) STG Duration 6 weeks Two Impairment pain with walking Short Term Goal (STG patient with 50% improved R hip and LBP with walking ) STG Duration 6 weeks One Impairment lack of HEP Short Term Goal (STG patient demonstrates indep with HEP ) STG Duration 6 weeks Assessment Summary Assessment improved R QL pain post Rx improved sit to stand improved ambulation pain and quality Physical Therapy Plan Frequency and Duration Frequency of 1x/Week Treatment Duration of 6 treatment (weeks) Plan of Care Start 03/14/25 Date Plan of Care End 05/14/25 Date Therapeutic Interventions Therapeutic Balance Training,Gait Training,Home Exercise Program, Interventions Joint Mobilizations,Manual Therapy,Neuromuscular Re- education,Patient/Caregiver Education,Self-Care/Home Management,Soft Tissue Mobilization,Taping,Therapeutic Activities,Therapeutic Exercises Modalities Cold Pack/Ice Massage,Electric Stimulation,Hot Packs, Ultrasound Next Visit Focus/Plan Next Note Type Treatment Note Next Visit Plan Recheck HEP, ROM/stretching/core progression. POC: warm up nu step // bars balance HEP: mobility, strength add hip abd,band, needs handout
--- NOTE | 2025-04-17 15:12 | PT.OPPOC ---
Physical, Occupational & Speech Therapy At [facility] Current Diagnoses Pain in right hip (04/17/25) Sciatica, unspecified side (04/17/25) Vertebrogenic low back pain (04/17/25) Visit Care Team Role Provider Type Jamee Unger MD Attending Provider Non-Staff Primary Care Provider Referring Provider Specialty: Infectious Disease Internal Medicine Address: [address] [place] [address], [id number] Email: Plan Of Care PT-OP-B Current Condition Start: 03/14/25 08:44 Freq: Status: Active Protocol: Document 04/11/25 07:40 KW (Rec: 04/11/25 09:02 KW Laptop) Current Condition History of Current Condition Onset Date chronic, October 2024 Current Complaints low back pain, right hip, right thigh, B calves,. B knee pain History of Current 70 yo retired female, comes to PT with low back pain, Condition hip pain that feels like an iron alistair thru her hip. She enjoys sailing with her . does not do formal exercise due to pain in knees. She is trying to loose weight so that she can qualify for knee replacements. Significant PMHx for 2001 C5/6 lami 2003 C5/6 fusion, 2006 gal bladder removede. 2007 developed R hand weakness. 5'4 282Lb PT-OP-T Assessment and Plan Start: 03/14/25 08:44 Freq: Status: Active Protocol: Document 04/17/25 13:53 KW (Rec: 04/17/25 14:07 KW Laptop) Physical Therapy Assessment Rehab Potential Rehabilitation Fair Potential Evaluation Complexity Number of Personal 3 or More Factors/ Comorbidities Number of Body 4 or More Systems Impaired Clinical Evolving Presentation at Evaluation Impairments Impairments Activity Tolerance,Balance,Functional Activities, Functional Mobility,Gait,Pain,Posture,ROM,Strength Goals Three Impairment impaired R hip strength Short Term Goal (STG R hip strength improves to 4/5 ) STG Duration 6 weeks Two Impairment pain with walking Short Term Goal (STG patient with 50% improved R hip and LBP with walking ) STG Duration 6 weeks One Impairment lack of HEP Short Term Goal (STG patient demonstrates indep with HEP ) STG Duration 6 weeks Assessment Summary Assessment improved R QL pain post Rx improved sit to stand improved ambulation pain and quality Physical Therapy Plan Frequency and Duration Frequency of 1x/Week Treatment Duration of 6 treatment (weeks) Plan of Care Start 03/14/25 Date Plan of Care End 05/14/25 Date Therapeutic Interventions Therapeutic Balance Training,Gait Training,Home Exercise Program, Interventions Joint Mobilizations,Manual Therapy,Neuromuscular Re- education,Patient/Caregiver Education,Self-Care/Home Management,Soft Tissue Mobilization,Taping,Therapeutic Activities,Therapeutic Exercises Modalities Cold Pack/Ice Massage,Electric Stimulation,Hot Packs, Ultrasound Next Visit Focus/Plan Next Note Type Treatment Note Next Visit Plan Recheck HEP, ROM/stretching/core progression. POC: warm up nu step // bars balance HEP: mobility, strength add hip abd,band, needs handout Plan of Care Dates Plan of Care Start Date 03/14/25 Plan of Care End Date 05/14/25 Electronically Signed by: Agnes Gabriel, PT 04/17/25 [id number] If you are in agreement with this Plan of Care, please return a signed and dated copy. I have reviewed this Plan of Care and certify that the skilled therapy services above are required to meet the patient?s needs. Physician Signature Date Printed Name and Credentials Clinical Instructor Signature Printed Name and Credentials
--- NOTE | 2025-04-26 12:24 | PT.OTN ---
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 B knee pain History of Current 70 yo retired female, comes to PT with low back pain, Condition hip pain that feels like an iron alistair thru her hip. She enjoys sailing with her . does not do formal exercise due to pain in knees. She is trying to loose weight so that she can qualify for knee replacements. Significant PMHx for 2001 C5/6 lami 2003 C5/6 fusion, 2006 gal bladder removede. 2007 developed R hand weakness. 5'4 282Lb PT-OP-C Subjective Start: 03/14/25 08:44 Freq: Status: Active Protocol: Document 04/26/25 11:10 AB (Rec: 04/26/25 12:24 AB [id number]) OP-PT Subjective Patient Comments Patient Comments Patient reports she is a little better, comments the L- R is equalizing. Patient comments she feels like she has a rock R SI area ( gestures to ) PT-OP-D Balance Start: 03/14/25 08:44 Freq: Status: Active Protocol: Document 04/11/25 07:40 KW (Rec: 04/11/25 09:02 KW Laptop) OP-PT Balance Assessment Standing Balance Static Standing Good Balance Ability Dynamic Standing Good Balance Ability Standing Balance challenge with tandem, narrow SUSANNA, unable to do head Comments turns - improving with better spinal/rib cage alignment Deleon Fall Scale Copyright Permission PT-OP-G Mobility & Gait Start: 03/14/25 08:44 Freq: Status: Active Protocol: Document 04/11/25 07:40 KW (Rec: 04/11/25 09:02 KW Laptop) OP Gait Assessment Gait Gait Assistance Independent Required: Assistive Devices Assistive Device None Gait Deviations General Gait Pattern Antalgic,Decreased Stride Length Comments Gait Comments improving with arm swing, counter rotation, alternating and reciprocal gait PT-OP-J Posture/Palpation/Skin Start: 03/14/25 08:44 Freq: Status: Active Protocol: Document 04/11/25 07:40 KW (Rec: 04/11/25 09:02 KW Laptop) Posture Evaluation Position Standing Evaluation View Lateral Head/C-Spine Posture Forward Head T-Spine Posture Increased Kyphosis L-Spine Posture Neutral,Flattened Scapula Posture (L) Protracted,(R) Protracted Arm Posture (L) Internally Rotated,(R) Internally Rotated Weight Distribution Weight Shifted Right Knee Posture (L) Genu Varus,(R) Genu Varus Palpation Assessment Location right hip Palpation Location posterior R hip Palpation Findings Soft Tissue Tightness,Spasm,Muscle Guarding PT-OP-K Range of Motion Start: 03/14/25 08:44 Freq: Status: Active Protocol: Document 04/11/25 07:40 KW (Rec: 04/11/25 09:02 KW Laptop) Hip Goniometric Range of Motion Hip right Hip ROM WFL No Testing Position Supine Flexion w/Knee 95 Flexed Straight Leg Raise 80 Internal Rotation 20 External Rotation 45 Comments stiff at end range - improving PT-OP-L Special Tests Start: 03/14/25 08:44 Freq: Status: Active Protocol: Document 04/11/25 07:40 KW (Rec: 04/11/25 09:02 KW Laptop) Special Tests Hip Special Tests CORIN Test Results (-) PT-OP-M Strength Start: 03/14/25 08:44 Freq: Status: Active Protocol: Document 04/11/25 07:40 KW (Rec: 04/11/25 09:02 KW Laptop) Hip Strength Hip Manual Muscle Testing Right Flexion (L2) 4 Good Extension (S1) 4 Good Abduction 4 Good External Rotation 4 Good Knee Strength Knee Manual Muscle Testing Right Flexion (S2) 4 Good Extension (L3) 4 Good PT-OP-Q Treatments Start: 03/14/25 08:44 Freq: Status: Active Protocol: Document 04/26/25 11:10 AB (Rec: 04/26/25 12:24 AB [id number]) Therapeutic Exercises Supine Exercises hip stretches Supine Exercise Name fig 4, piriformis, Sathya Side bilateral Reps/Minutes 60 sec each stretch each LE Comments verbal cues Standing Exercises sit to stand Side bilateral Reps/Minutes X8 Comments Patient ed use of self tactile cues for hip hinge. Manual Therapy Treatment Soft Tissue Mobilization R hip lumbar spine Body Location Psoas, glute/piriformis bilaterally Mobilization Type Cross-Friction,Rolling,Sustained Pressure Intensity/Depth Moderate Body Position Hooklying Comments and sidelying. Manual Techniques MET R AI L PI Comments and pubic shotgun 6 X 6 seconds each PT-OP-T Assessment and Plan Start: 03/14/25 08:44 Freq: Status: Active Protocol: Document 04/26/25 11:10 AB (Rec: 04/26/25 12:24 AB [id number]) Physical Therapy Assessment Goals Three Impairment impaired R hip strength Short Term Goal (STG R hip strength improves to 4/5 ) STG Duration 6 weeks Two Impairment pain with walking Short Term Goal (STG patient with 50% improved R hip and LBP with walking ) STG Duration 6 weeks One Impairment lack of HEP Short Term Goal (STG patient demonstrates indep with HEP ) STG Duration 6 weeks Assessment Summary Assessment Patient reports the rock is gone, feels much better. Patient able to transfer stand to sit with increased hip hinge with reports of decreased hip discomfort. Physical Therapy Plan Frequency and Duration Frequency of 1x/Week Treatment Duration of 6 treatment (weeks) Plan of Care Start 03/14/25 Date Plan of Care End 05/14/25 Date Next Visit Focus/Plan Next Note Type Treatment Note Next Visit Plan Recheck HEP, ROM/stretching/core progression. POC: warm up nu step // bars balance HEP: mobility, strength add hip abd,band, needs handout
--- NOTE | 2025-04-29 08:56 | PT.OTN ---
Current Diagnoses Pain in right hip (04/29/25) Sciatica, unspecified side (04/29/25) Vertebrogenic low back pain (04/29/25) Physical Therapy Treatment Note PT-OP-A Visit Information Start: 03/14/25 08:44 Freq: Status: Active Protocol: Document 04/29/25 08:18 SP (Rec: 04/29/25 09:00 SP [id number]) Out-Patient Physical Therapy Visit Information Visit Information Visit Type Treatment Note Visit Start Time 08:18 Visit Stop Time 08:56 Visit Number 8 (2 /5 approved PN 05/11/2025) Number of CUSTOMS GUARD Visits 2 PT-OP-B Current Condition Start: 03/14/25 08:44 Freq: Status: Active Protocol: Document 04/11/25 07:40 KW (Rec: 04/11/25 09:02 KW Laptop) Current Condition History of Current Condition Onset Date , October 2024 Current Complaints low back pain, right hip, right thigh, B calves,. B knee pain History of Current 70 yo retired female, comes to PT with low back pain, Condition hip pain that feels like an iron alistair thru her hip. She enjoys sailing with her . does not do formal exercise due to pain in knees. She is trying to loose weight so that she can qualify for knee replacements. Significant PMHx for 2001 C5/6 lami 2003 C5/6 fusion, 2006 gal bladder removede. 2007 developed R hand weakness. 5'4 282Lb PT-OP-C Subjective Start: 03/14/25 08:44 Freq: Status: Active Protocol: Document 04/29/25 08:18 SP (Rec: 04/29/25 09:00 SP [id number]) OP-PT Subjective Patient Comments Patient Comments Pt reports the stretching are helping, feels like the muscles are resistant to change but is helping, about to walk better. PT-OP-D Balance Start: 03/14/25 08:44 Freq: Status: Active Protocol: Document 04/11/25 07:40 KW (Rec: 04/11/25 09:02 KW Laptop) OP-PT Balance Assessment Standing Balance Static Standing Good Balance Ability Dynamic Standing Good Balance Ability Standing Balance challenge with tandem, narrow SUSANNA, unable to do head Comments turns - improving with better spinal/rib cage alignment Deleon Fall Scale Copyright Permission PT-OP-G Mobility & Gait Start: 03/14/25 08:44 Freq: Status: Active Protocol: Document 04/11/25 07:40 KW (Rec: 04/11/25 09:02 KW Laptop) OP Gait Assessment Gait Gait Assistance Independent Required: Assistive Devices Assistive Device None Gait Deviations General Gait Pattern Antalgic,Decreased Stride Length Comments Gait Comments improving with arm swing, counter rotation, alternating and reciprocal gait PT-OP-J Posture/Palpation/Skin Start: 03/14/25 08:44 Freq: Status: Active Protocol: Document 04/11/25 07:40 KW (Rec: 04/11/25 09:02 KW Laptop) Posture Evaluation Position Standing Evaluation View Lateral Head/C-Spine Posture Forward Head T-Spine Posture Increased Kyphosis L-Spine Posture Neutral,Flattened Scapula Posture (L) Protracted,(R) Protracted Arm Posture (L) Internally Rotated,(R) Internally Rotated Weight Distribution Weight Shifted Right Knee Posture (L) Genu Varus,(R) Genu Varus Palpation Assessment Location right hip Palpation Location posterior R hip Palpation Findings Soft Tissue Tightness,Spasm,Muscle Guarding PT-OP-K Range of Motion Start: 03/14/25 08:44 Freq: Status: Active Protocol: Document 04/11/25 07:40 KW (Rec: 04/11/25 09:02 KW Laptop) Hip Goniometric Range of Motion Hip right Hip ROM WFL No Testing Position Supine Flexion w/Knee 95 Flexed Straight Leg Raise 80 Internal Rotation 20 External Rotation 45 Comments stiff at end range - improving PT-OP-L Special Tests Start: 03/14/25 08:44 Freq: Status: Active Protocol: Document 04/11/25 07:40 KW (Rec: 04/11/25 09:02 KW Laptop) Special Tests Hip Special Tests CORIN Test Results (-) PT-OP-M Strength Start: 03/14/25 08:44 Freq: Status: Active Protocol: Document 04/11/25 07:40 KW (Rec: 04/11/25 09:02 KW Laptop) Hip Strength Hip Manual Muscle Testing Right Flexion (L2) 4 Good Extension (S1) 4 Good Abduction 4 Good External Rotation 4 Good Knee Strength Knee Manual Muscle Testing Right Flexion (S2) 4 Good Extension (L3) 4 Good PT-OP-Q Treatments Start: 03/14/25 08:44 Freq: Status: Active Protocol: Document 04/29/25 08:18 SP (Rec: 04/29/25 09:00 SP [id number]) Therapeutic Exercises Supine Exercises hip stretches Supine Exercise Name Stretching: fig 4 (hip ER), piriformis (Hip IR), Sathya Side bilateral Reps/Minutes 60 sec each stretch each LE Comments verbal cues breath, (sathya) low back toward table, Sitting Exercises Resisted hip abduction (clamshell) Sitting Exercise added to HEP with HO Name Side bilateral Resistance Tb #2 teal band Reps/Minutes 60 sec then 15 reps Comments good muscle tiring Standing Exercises Hip Abduction Standing Exercise added to HEP with HO Name sit to stand Side bilateral Resistance Tb #2 teal Reps/Minutes X8 Comments good hip hinge, cued TA fac slow eccentric pacing Manual Therapy Treatment Consent Patient gave verbal Yes consent for manual treatment Soft Tissue Mobilization R hip lumbar spine Body Location R Psoas, glute/piriformis bilaterally Mobilization Type Cross-Friction,Rolling,Sustained Pressure Intensity/Depth Moderate Body Position Hooklying Comments and sidelying. Manual Techniques MET Pelvis Comments R posterior rotation correction, L anterior correction- manual then review instruction using stick. - Level pelvis correction noted Self-Care/Home Management Treatment Education Patient Education Body Mechanics,Home Exercise Program,Joint Protection, Pain Management,Posture Other Education Instructional cues for posture, core engagement and breath with awareness of spinal and pelvic alignment during stretching, resisted ther ex to allow neutral spine and focused strengthening progression. PT-OP-T Assessment and Plan Start: 03/14/25 08:44 Freq: Status: Active Protocol: Document 04/29/25 08:18 SP (Rec: 04/29/25 09:00 SP [id number]) Physical Therapy Assessment Goals Three Impairment impaired R hip strength Short Term Goal (STG R hip strength improves to 4/5 ) STG Duration 6 weeks Two Impairment pain with walking Short Term Goal (STG patient with 50% improved R hip and LBP with walking ) STG Duration 6 weeks One Impairment lack of HEP Short Term Goal (STG patient demonstrates indep with HEP ) STG Duration 6 weeks Assessment Summary Assessment Pt good feedback response to manual, instructional review of set up and proper form with alignment and core engagement during stretching and ther ex to get benefits of mobility and strengthening. Pt states feels alot better than when arrived and muscle tiring. See HOs provided. Physical Therapy Plan Frequency and Duration Frequency of 1x/Week Treatment Duration of 6 treatment (weeks) Plan of Care Start 03/14/25 Date Plan of Care End 05/14/25 Date Therapeutic Interventions Therapeutic Balance Training,Gait Training,Home Exercise Program, Interventions Joint Mobilizations,Manual Therapy,Neuromuscular Re- education,Patient/Caregiver Education,Self-Care/Home Management,Soft Tissue Mobilization,Taping,Therapeutic Activities,Therapeutic Exercises Modalities Cold Pack/Ice Massage,Electric Stimulation,Hot Packs, Ultrasound Next Visit Focus/Plan Next Note Type Treatment Note Next Visit Plan Recheck HEP, ROM/stretching/core progression standing ( hand outs). POC: warm up nu step Next add // bars balance HEP: mobility, strength
--- NOTE | 2025-05-01 09:42 | PT.OTN ---
Current Diagnoses Pain in right hip (05/01/25) Sciatica, unspecified side (05/01/25) Vertebrogenic low back pain (05/01/25) Physical Therapy Treatment Note PT-OP-A Visit Information Start: 03/14/25 08:44 Freq: Status: Active Protocol: Document 05/01/25 09:06 KW (Rec: 05/01/25 09:42 KW Laptop) Out-Patient Physical Therapy Visit Information Visit Information Visit Type Treatment Note Visit Start Time 09:00 Visit Stop Time 09:40 Number of CLINIC CLERK Visits 2 Evaluation Information Evaluation Date 03/13/25 PT-OP-B Current Condition Start: 03/14/25 08:44 Freq: Status: Active Protocol: Document 04/11/25 07:40 KW (Rec: 04/11/25 09:02 KW Laptop) Current Condition History of Current Condition Onset Date October 2024 Current Complaints low back pain, right hip, right thigh, B calves,. B knee pain History of Current 70 yo retired female, comes to PT with low back pain, Condition hip pain that feels like an iron alistair thru her hip. She enjoys sailing with her . does not do formal exercise due to pain in knees. She is trying to loose weight so that she can qualify for knee replacements. Significant PMHx for 2001 C5/6 lami 2003 C5/6 fusion, 2006 gal bladder removede. 2007 developed R hand weakness. 5'4 282Lb PT-OP-C Subjective Start: 03/14/25 08:44 Freq: Status: Active Protocol: Document 05/01/25 09:06 KW (Rec: 05/01/25 09:42 KW Laptop) OP-PT Subjective Patient Comments Patient Comments is on a gal bladder restriction diet is conscious about good fats born 2 months early (twin) OP-PT Pain Assessment Location low back Scale Used Numeric (0 - 10) Description Aching,Cramping,Pinching,Pulling Frequency Frequent Pain Alleviating Cold,Heat,Medication,Inactivity Factors Pain Aggravating Position,Changing Position,ADL's,Activity,Exercise Factors R hip Scale Used Numeric (0 - 10) Description Aching,Cramping,Pinching,Pulling Frequency Frequent Pain Alleviating Cold,Heat,Medication,Inactivity Factors Pain Aggravating Changing Position,ADL's,Activity,Exercise,Standing, Factors Walking PT-OP-D Balance Start: 03/14/25 08:44 Freq: Status: Active Protocol: Document 04/11/25 07:40 KW (Rec: 04/11/25 09:02 KW Laptop) OP-PT Balance Assessment Standing Balance Static Standing Good Balance Ability Dynamic Standing Good Balance Ability Standing Balance challenge with tandem, narrow SUSANNA, unable to do head Comments turns - improving with better spinal/rib cage alignment Deleon Fall Scale Copyright Permission PT-OP-G Mobility & Gait Start: 03/14/25 08:44 Freq: Status: Active Protocol: Document 04/11/25 07:40 KW (Rec: 04/11/25 09:02 KW Laptop) OP Gait Assessment Gait Gait Assistance Independent Required: Assistive Devices Assistive Device None Gait Deviations General Gait Pattern Antalgic,Decreased Stride Length Comments Gait Comments improving with arm swing, counter rotation, alternating and reciprocal gait PT-OP-J Posture/Palpation/Skin Start: 03/14/25 08:44 Freq: Status: Active Protocol: Document 04/11/25 07:40 KW (Rec: 04/11/25 09:02 KW Laptop) Posture Evaluation Position Standing Evaluation View Lateral Head/C-Spine Posture Forward Head T-Spine Posture Increased Kyphosis L-Spine Posture Neutral,Flattened Scapula Posture (L) Protracted,(R) Protracted Arm Posture (L) Internally Rotated,(R) Internally Rotated Weight Distribution Weight Shifted Right Knee Posture (L) Genu Varus,(R) Genu Varus Palpation Assessment Location right hip Palpation Location posterior R hip Palpation Findings Soft Tissue Tightness,Spasm,Muscle Guarding PT-OP-K Range of Motion Start: 03/14/25 08:44 Freq: Status: Active Protocol: Document 04/11/25 07:40 KW (Rec: 04/11/25 09:02 KW Laptop) Hip Goniometric Range of Motion Hip right Hip ROM WFL No Testing Position Supine Flexion w/Knee 95 Flexed Straight Leg Raise 80 Internal Rotation 20 External Rotation 45 Comments stiff at end range - improving PT-OP-L Special Tests Start: 03/14/25 08:44 Freq: Status: Active Protocol: Document 04/11/25 07:40 KW (Rec: 04/11/25 09:02 KW Laptop) Special Tests Hip Special Tests CORIN Test Results (-) PT-OP-M Strength Start: 03/14/25 08:44 Freq: Status: Active Protocol: Document 04/11/25 07:40 KW (Rec: 04/11/25 09:02 KW Laptop) Hip Strength Hip Manual Muscle Testing Right Flexion (L2) 4 Good Extension (S1) 4 Good Abduction 4 Good External Rotation 4 Good Knee Strength Knee Manual Muscle Testing Right Flexion (S2) 4 Good Extension (L3) 4 Good PT-OP-Q Treatments Start: 03/14/25 08:44 Freq: Status: Active Protocol: Document 05/01/25 09:06 KW (Rec: 05/01/25 09:42 KW Laptop) Therapeutic Exercises Supine Exercises bridge Supine Exercise Name trialed AB brace vs segmental Reps/Minutes 10 reps Sathya Stretch Supine Exercise Name reviewed self Ex Side right Reps/Minutes 30-60 sec Comments if toleranted, neutral LS pelvic tilts Supine Exercise Name warm up pre get out of bed Reps/Minutes 10 Comments fwd/bwd/lateral LTR Supine Exercise Name warm up pre out of bed- Side bilateral Reps/Minutes 10 Comments 1. level pelvis on bed 2. Off 1side stretch CORE stabilization Supine Exercise Name supine marching, bent knee fall outs, heel slides- reviewed and added HO Resistance AROM Reps/Minutes 30 sec each alternating Comments cues PPT level pelvis on table, slow breath with exhale strap stretch Comments discussed, not performed, next review and add ITB stretch if beneficial physioball Supine Exercise Name supine hamstring curls, LTR, bridge hip stretches Supine Exercise Name Stretching: fig 4 (hip ER), piriformis (Hip IR), Sathya Side bilateral Reps/Minutes 60 sec each stretch each LE Comments verbal cues breath, (sathya) low back toward table, Sidelying Exercises open book Sidelying Exercise open book with top leg on bolster - handout issued Name Reps/Minutes 10 Comments coordinated breathing Sitting Exercises Resisted hip abduction (clamshell) Side bilateral Resistance Tb #2 teal band Reps/Minutes 60 sec then 15 reps Comments good muscle tiring Standing Exercises Hip Abduction Standing Exercise added to HEP with HO Name sit to stand Side bilateral Resistance Tb #2 teal Reps/Minutes X8 Comments good hip hinge, cued TA fac slow eccentric pacing Manual Therapy Treatment Consent Patient gave verbal Yes consent for manual treatment Soft Tissue Mobilization R hip lumbar spine Body Location R Psoas, glute/piriformis bilaterally Mobilization Type Cross-Friction,Rolling,Sustained Pressure Intensity/Depth Moderate Body Position Hooklying Comments and sidelying. Joint Mobilizations R hip Joint R hip- PNF Grade II Body Position L SL Comments manual facilitation then resisted: anterior elevation/ posterior depression- decrease R low back and hip tightness and fac core and glut engagement PNF Manual Techniques MET Pelvis Comments R posterior rotation correction, L anterior correction- manual then review instruction using stick. - Level pelvis correction noted MET R AI L PI Comments and pubic shotgun 6 X 6 seconds each Self-Care/Home Management Treatment Education Patient Education Body Mechanics,Home Exercise Program,Joint Protection, Pain Management,Posture Other Education Instructional cues for posture, core engagement and breath with awareness of spinal and pelvic alignment during stretching, resisted ther ex to allow neutral spine and focused strengthening progression. PT-OP-T Assessment and Plan Start: 03/14/25 08:44 Freq: Status: Active Protocol: Document 05/01/25 09:06 KW (Rec: 05/01/25 09:42 KW Laptop) Physical Therapy Assessment Rehab Potential Rehabilitation Fair Potential Evaluation Complexity Number of Personal 3 or More Factors/ Comorbidities Number of Body 4 or More Systems Impaired Clinical Evolving Presentation at Evaluation Impairments Impairments Activity Tolerance,Balance,Functional Activities, Functional Mobility,Gait,Pain,Posture,ROM,Strength Goals Three Impairment impaired R hip strength Short Term Goal (STG R hip strength improves to 4/5 ) STG Duration 6 weeks Two Impairment pain with walking Short Term Goal (STG patient with 50% improved R hip and LBP with walking ) STG Duration 6 weeks One Impairment lack of HEP Short Term Goal (STG patient demonstrates indep with HEP ) STG Duration 6 weeks Assessment Summary Assessment excellent relief today. Good realization of impact of good shoe wear. Physical Therapy Plan Frequency and Duration Frequency of 1x/Week Treatment Duration of 6 treatment (weeks) Plan of Care Start 03/14/25 Date Plan of Care End 05/14/25 Date Therapeutic Interventions Therapeutic Balance Training,Gait Training,Home Exercise Program, Interventions Joint Mobilizations,Manual Therapy,Neuromuscular Re- education,Patient/Caregiver Education,Self-Care/Home Management,Soft Tissue Mobilization,Taping,Therapeutic Activities,Therapeutic Exercises Modalities Cold Pack/Ice Massage,Electric Stimulation,Hot Packs, Ultrasound Next Visit Focus/Plan Next Note Type Treatment Note Next Visit Plan Recheck HEP, ROM/stretching/core progression standing ( hand outs). POC: warm up nu step Next add // bars balance HEP: mobility, strength
--- NOTE | 2025-05-09 09:37 | PT.OPPOC ---
Physical, Occupational & Speech Therapy At [facility] Current Diagnoses Pain in right hip (05/09/25) Sciatica, unspecified side (05/09/25) Vertebrogenic low back pain (05/09/25) Visit Care Team Role Provider Type Jamee Unger MD Attending Provider Non-Staff Primary Care Provider Referring Provider Specialty: Infectious Disease Internal Medicine Address: [address] [place] [address], [id number] Email: Plan Of Care PT OP: Lower Back/Lower Extremity Start: 05/09/25 09:10 Freq: Status: Active Protocol: Document 05/09/25 09:10 KW (Rec: 05/09/25 09:37 KW Laptop) Out-Patient Physical Therapy Visit Information Visit Information Visit Type Progress Note Visit Start Time 09:00 Visit Stop Time 09:40 Visit Number 4/5 OP-PT Subjective Patient Comments Patient Comments got Synvisc injections B knees started GLP1, N&V OP-PT Pain Assessment Location low back Pain Intensity 3 Scale Used Numeric (0 - 10) Description Aching,Cramping,Pinching,Pulling Frequency Frequent Pain Alleviating Cold,Heat,Medication,Inactivity Factors Pain Aggravating Position,Changing Position,ADL's,Activity,Exercise Factors R hip Pain Intensity 3 Scale Used Numeric (0 - 10) Description Aching,Cramping,Pinching,Pulling Frequency Frequent Pain Alleviating Cold,Heat,Medication,Inactivity Factors Pain Aggravating Changing Position,ADL's,Activity,Exercise,Standing, Factors Walking OP Gait Assessment Gait Gait Assistance Independent Required: Assistive Devices Assistive Device None Gait Deviations General Gait Pattern Antalgic,Decreased Stride Length Comments Gait Comments improving with arm swing, counter rotation, alternating and reciprocal gait Hip Goniometric Range of Motion Hip Measured in Degrees right Hip ROM WFL No Testing Position Supine Flexion w/Knee 95 Flexed Straight Leg Raise 85 Internal Rotation 20 External Rotation 45 Comments stiff at end range - improving Hip Strength Hip Manual Muscle Testing Right Flexion (L2) 4 Good Extension (S1) 4 Good Abduction 4 Good External Rotation 4 Good Knee Strength Knee Manual Muscle Testing Right Flexion (S2) 4+ Good+ Extension (L3) 4+ Good+ Cardio Equipment Recumbent Stepper (Sci-Fit) Duration (Minutes) 10 Gym Equipment Cable Column (Body Solid) squats Details 50#B LE, 37# Single squat and heel raises Shuttle Balance red Details AP/ML Reps/Duration 6 Therapeutic Ball seated PNF Exercise Details PNF pull downs R/L x 20 each with breath work Ball Size/Color red Therapeutic Exercises Supine Exercises bridge Supine Exercise Name trialed AB brace vs segmental Reps/Minutes 10 reps Sathya Stretch Supine Exercise Name reviewed self Ex Side right Reps/Minutes 30-60 sec Comments if toleranted, neutral LS pelvic tilts Supine Exercise Name warm up pre get out of bed Reps/Minutes 10 Comments fwd/bwd/lateral LTR Supine Exercise Name warm up pre out of bed- Side bilateral Reps/Minutes 10 Comments 1. level pelvis on bed 2. Off 1side stretch CORE stabilization Supine Exercise Name supine marching, bent knee fall outs, heel slides- reviewed and added HO Resistance AROM Reps/Minutes 30 sec each alternating Comments cues PPT level pelvis on table, slow breath with exhale strap stretch Comments discussed, not performed, next review and add ITB stretch if beneficial physioball Supine Exercise Name supine hamstring curls, LTR, bridge hip stretches Supine Exercise Name Stretching: fig 4 (hip ER), piriformis (Hip IR), Sathya Side bilateral Reps/Minutes 60 sec each stretch each LE Comments verbal cues breath, (sathya) low back toward table, Sidelying Exercises open book Sidelying Exercise open book with top leg on bolster - handout issued Name Reps/Minutes 10 Comments coordinated breathing Sitting Exercises Resisted hip abduction (clamshell) Side bilateral Resistance Tb #2 teal band Reps/Minutes 60 sec then 15 reps Comments good muscle tiring Standing Exercises Hip Abduction Standing Exercise added to HEP with HO Name sit to stand Side bilateral Resistance Tb #2 teal Reps/Minutes X8 Comments good hip hinge, cued TA fac slow eccentric pacing Manual Therapy Treatment Consent Patient gave verbal Yes consent for manual treatment Soft Tissue Mobilization R hip lumbar spine Body Location R Psoas, glute/piriformis bilaterally Mobilization Type Cross-Friction,Rolling,Sustained Pressure Intensity/Depth Moderate Body Position Hooklying Comments and sidelying. Joint Mobilizations R hip Joint R hip- PNF Grade II Body Position L SL Comments manual facilitation then resisted: anterior elevation/ posterior depression- decrease R low back and hip tightness and fac core and glut engagement PNF Manual Techniques MET Pelvis Comments R posterior rotation correction, L anterior correction- manual then review instruction using stick. - Level pelvis correction noted MET R AI L PI Comments and pubic shotgun 6 X 6 seconds each Self-Care/Home Management Treatment Education Patient Education Body Mechanics,Home Exercise Program,Joint Protection, Pain Management,Posture Other Education Instructional cues for posture, core engagement and breath with awareness of spinal and pelvic alignment during stretching, resisted ther ex to allow neutral spine and focused strengthening progression. Physical Therapy Assessment Rehab Potential Rehabilitation Good Potential Goals Four Impairment unable to go up/down stairs with step over gait Short Term Goal (STG able to go up/down stairs with step over gait ) Three Impairment impaired R hip strength Short Term Goal (STG R hip strength improves to 4/5 - MET ) STG Duration 6 weeks Two Impairment pain with walking Short Term Goal (STG patient with 50% improved R hip and LBP with walking ) now 75% STG Duration 6 weeks One Impairment lack of HEP Short Term Goal (STG patient demonstrates indep with HEP - MET ) STG Duration 6 weeks Assessment Summary Assessment good relief with injections making good gains, patient feels it would be helpful to continue PT for solid foundation for future progress and pending total knee replacements once at [id number] Physical Therapy Plan Frequency and Duration Frequency of 1x/Week Treatment Duration of 6 treatment (weeks) Plan of Care Start 05/14/25 Date Plan of Care End 07/14/25 Date Next Visit Focus/Plan Next Note Type Treatment Note Next Visit Plan Recheck HEP, ROM/stretching/core progression standing ( hand outs). POC: warm up nu step Next add // bars balance HEP: mobility, strength Plan of Care Dates Plan of Care Start Date 05/14/25 Plan of Care End Date 07/14/25 Electronically Signed by: Agnes Gabriel, PAO 05/09/25 0937 If you are in agreement with this Plan of Care, please return a signed and dated copy. I have reviewed this Plan of Care and certify that the skilled therapy services above are required to meet the patient?s needs. Physician Signature Date Printed Name and Credentials Clinical Instructor Signature Printed Name and Credentials
--- NOTE | 2025-06-26 09:33 | PT.OPPN ---
Current Diagnoses Pain in right hip (06/26/25) Sciatica, unspecified side (06/26/25) Vertebrogenic low back pain (06/26/25) Physical Therapy Progress Note PT OP: Lower Back/Lower Extremity Start: 05/09/25 09:10 Freq: Status: Active Protocol: Document 06/26/25 08:19 MOUNIKA (Rec: 06/26/25 09:33 MOUNIKA [id number]) Out-Patient Physical Therapy Visit Information Visit Information Visit Type Progress Note Visit Start Time 08:20 Visit Stop Time 09:00 Visit Number 5 Number of OVERLAY PLASTICIAN Visits 0 Progress Note Due 07/26/25 OP-PT Subjective Patient Comments Patient Comments Patient reports R and low back that started in October 2024. She reports her hip pain started in December 2024. She reports no precipitating factors around the time the pain started. She reports that since the pain started her pain has improved. She reports still gets spasms in her back at times but reports that the frequency has improved. She reports her GROC is 80%. She is doing her home exercises. She reports she gets back spasms after standing after she was sitting for an extended period. She also notes pain when she is standing for an extended period or walking more than 20 minutes. Hip Strength Hip Manual Muscle Testing Right Flexion (L2) 5 Normal Extension (S1) 5 Normal Abduction 5 Normal Adduction 5 Normal Physical Therapy Assessment Goals Six Impairment Lumbar load tolerance Short Term Goal (STG Patient will lift 20# from the ground with proper ) mechanics and no increase in pain levels. STG Duration 3 Rn Radiation Oncology Goal (LTG) Patient will report lifting 30# from the ground with proper mechanics and no increase in pain levels. LTG Duration 6 Five Impairment Walking tolerance Short Term Goal (STG Patient will report walking >30 mins with no increase ) in pain levels in order to better function with grocery shopping. STG Duration 3 [facility] Goal (LTG) Patient will report walking >40 mins with no increase in pain levels in order to better function with grocery shopping. LTG Duration 6 Four Impairment unable to go up/down stairs with step over gait Short Term Goal (STG able to go up/down stairs with step over gait ) Met Three Impairment impaired R hip strength Short Term Goal (STG R hip strength improves to 4/5 - MET ) STG Duration 6 weeks Two Impairment pain with walking Short Term Goal (STG patient with 50% improved R hip and LBP with walking ) now 75% - Met STG Duration 6 weeks One Impairment lack of HEP Short Term Goal (STG patient demonstrates indep with HEP - MET ) STG Duration 6 weeks Assessment Summary Assessment Patient presenting to PT after 5 visits for low back and hip pain. Patient has made improvement with function with walking and standing but still feels limited with walking for extended periods and bending down to lift. Patient will continue to benefit from PT to address remaining deficits and return to prior level of function. Physical Therapy Plan Frequency and Duration Frequency of 1x/Week Treatment Duration of 6 treatment (weeks) Plan of Care Start 05/14/25 Date Plan of Care End 07/14/25 Date Next Visit Focus/Plan Next Note Type Treatment Note Next Visit Plan Initiate core, hip and spine strengthening exercises
--- NOTE | 2025-06-28 14:40 | PT.OTN ---
Current Diagnoses Pain in right hip (06/28/25) Sciatica, unspecified side (06/28/25) Vertebrogenic low back pain (06/28/25) Physical Therapy Treatment Note PT OP: Lower Back/Lower Extremity Start: 05/09/25 09:10 Freq: Status: Active Protocol: Document 06/28/25 12:57 MOUNIKA (Rec: 06/28/25 14:36 MOUNIKA [id number]) Out-Patient Physical Therapy Visit Information Visit Information Visit Type Treatment Note Visit Start Time 13:00 Visit Stop Time 13:40 Visit Number 6 Number of ASSISTANT FOREMAN Visits 0 Progress Note Due 07/28/25 OP-PT Subjective Patient Comments Patient Comments Patient reports her back is a little stiff today but no pain. She reports she had some pain yesterday when she was in her car. Therapeutic Exercises Supine Exercises Deadbug Supine Exercise Name with ball squeeze and alternating arms Reps/Minutes 3x10 bridge Reps/Minutes 2x15 Sitting Exercises Seated hip hinge Side bilateral Resistance up to 20# Reps/Minutes 3x10 Standing Exercises Standing marches Reps/Minutes x10 each side Hip Abduction Reps/Minutes 2x10 each side Comments cues for keeping hip IR sit to stand Side bilateral Reps/Minutes 3x10 Comments cues for hinge then drive through legs Physical Therapy Assessment Goals Six Impairment Lumbar load tolerance Short Term Goal (STG Patient will lift 20# from the ground with proper ) mechanics and no increase in pain levels. STG Duration 3 Assistant Operator Goal (LTG) Patient will report lifting 30# from the ground with proper mechanics and no increase in pain levels. LTG Duration 6 Five Impairment Walking tolerance Short Term Goal (STG Patient will report walking >30 mins with no increase ) in pain levels in order to better function with grocery shopping. STG Duration 3 Assistant Operator Goal (LTG) Patient will report walking >40 mins with no increase in pain levels in order to better function with grocery shopping. LTG Duration 6 Four Impairment unable to go up/down stairs with step over gait Short Term Goal (STG able to go up/down stairs with step over gait ) Met Three Impairment impaired R hip strength Short Term Goal (STG R hip strength improves to 4/5 - MET ) STG Duration 6 weeks Two Impairment pain with walking Short Term Goal (STG patient with 50% improved R hip and LBP with walking ) now 75% - Met STG Duration 6 weeks One Impairment lack of HEP Short Term Goal (STG patient demonstrates indep with HEP - MET ) STG Duration 6 weeks Assessment Summary Assessment Treatment focused on core, hip, and spine strengthening . Patient tolerated treatment well with no increases in pain levels. Plan next session to progress strengthening as tolerated and follow up on home exercises. Physical Therapy Plan Frequency and Duration Frequency of 1x/Week Treatment Duration of 6 treatment (weeks) Plan of Care Start 05/14/25 Date Plan of Care End 07/14/25 Date Next Visit Focus/Plan Next Note Type Treatment Note Next Visit Plan Continue with core, hip and spine strengthening exercises. Trial standing hip hinge.
--- NOTE | 2025-07-03 15:31 | PT.OTN ---
Current Diagnoses Pain in right hip (07/03/25) Sciatica, unspecified side (07/03/25) Vertebrogenic low back pain (07/03/25) Physical Therapy Treatment Note PT OP: Lower Back/Lower Extremity Start: 05/09/25 09:10 Freq: Status: Active Protocol: Document 07/03/25 14:33 AB (Rec: 07/03/25 15:18 AB [id number]) Out-Patient Physical Therapy Visit Information Visit Information Visit Type Treatment Note Visit Start Time 14:34 Visit Stop Time 15:19 Visit Number 7 Number of DATA ENTRY ASSOCIATE Visits 1 Progress Note Due 07/28/25 OP-PT Subjective Patient Comments Patient Comments Patient reports 4th day post previous session had pain 7/10 right glute/SI area, reports the clamshell and ice helped. Therapeutic Exercises Supine Exercises hip stretches Supine Exercise Name Stretching: fig 4 (hip ER), piriformis (Hip IR),( Sathya not perf time limi Side bilateral Reps/Minutes 60 sec each stretch each LE Comments pre MET for piriformis, Standing Exercises glute med isometric Reps/Minutes X 15 sec each LE then 40 sec Comments Verbal and visual cues standing hip hinge Standing Exercise also VC to avoid toeing out ( reports dec knee pain Name post these cues) Side bilateral Resistance 10 lb and 20 lb Reps/Minutes X 3 then X 5 then with weight X10 each 19 inch seat height Comments Verbal and visual cues, cues for chest out and pt ed sensation in hamstring Standing marches Reps/Minutes x10 each side Comments with and without UE use, Vc to avoid tipping Gait Training Gait Activity heel toe pattern avoiding R hip ER >L Description without device Comments Verbal cues when standing, and ambulating out of session. Patient reports no knee pain when ambulating with heel toe pattern and R LE with improved alignment Manual Therapy Treatment Consent Patient gave verbal Yes consent for manual treatment Soft Tissue Mobilization R hip lumbar spine Body Location R glute/piriformis, bilateral LS paraspinals Mobilization Type Cross-Friction,Rolling,Sustained Pressure Intensity/Depth Moderate Body Position Sidelying Manual Techniques MET R AI L PI Type L AI R PI and pubic shotgun Comments 6 sec 6 X Physical Therapy Assessment Goals Six Impairment Lumbar load tolerance Short Term Goal (STG Patient will lift 20# from the ground with proper ) mechanics and no increase in pain levels. STG Duration 3 Primer Powder Blender Wet Goal (LTG) Patient will report lifting 30# from the ground with proper mechanics and no increase in pain levels. LTG Duration 6 Five Impairment Walking tolerance Short Term Goal (STG Patient will report walking >30 mins with no increase ) in pain levels in order to better function with grocery shopping. STG Duration 3 Senior Care Goal (LTG) Patient will report walking >40 mins with no increase in pain levels in order to better function with grocery shopping. LTG Duration 6 Four Impairment unable to go up/down stairs with step over gait Short Term Goal (STG able to go up/down stairs with step over gait ) Met Three Impairment impaired R hip strength Short Term Goal (STG R hip strength improves to 4/5 - MET ) STG Duration 6 weeks Two Impairment pain with walking Short Term Goal (STG patient with 50% improved R hip and LBP with walking ) now 75% - Met STG Duration 6 weeks One Impairment lack of HEP Short Term Goal (STG patient demonstrates indep with HEP - MET ) STG Duration 6 weeks Assessment Summary Assessment Patient reports no pain end of session, but reported pain starting to inc R knee hip, with cues to improve R LE alignment resolved pain. Good form with lift in standing, with patient reporting sensation of stretch in hamstrings. Physical Therapy Plan Frequency and Duration Frequency of 1x/Week Treatment Duration of 6 treatment (weeks) Plan of Care Start 05/14/25 Date Plan of Care End 07/14/25 Date Next Visit Focus/Plan Next Note Type Treatment Note Next Visit Plan Continue with core, hip and spine strengthening exercises. review standing hip hinge, possibly weight to lower depth, single leg lift to ( reaching to mat at seat height).
--- NOTE | 2025-07-30 08:19 | PT.OTN ---
Current Diagnoses Pain in right hip (07/30/25) Sciatica, unspecified side (07/30/25) Vertebrogenic low back pain (07/30/25) Physical Therapy Treatment Note PT OP: Lower Back/Lower Extremity Start: 05/09/25 09:10 Freq: Status: Active Protocol: Document 07/30/25 07:22 MOUNIKA (Rec: 07/30/25 08:18 MOUNIKA [id number]) Out-Patient Physical Therapy Visit Information Visit Information Visit Type Discharge Summary Visit Start Time 07:30 Visit Stop Time 08:15 Visit Number 8 Number of SHOE MAKER Visits 0 Progress Note Due 08/29/25 OP-PT Subjective Patient Comments Patient Comments Patient reports she is doing a lot better overall since starting PT. She reports she has a 90% GROC. She reports that she still has a slight twinge in her R low back and she has had two spasms in the last month. She notes improvement in pain levels and activity levels. She also notes improvement with getting onto and off of her boat. She reports she feels comfortable with where she is at and would be confident continuing her home exercises independently. Therapeutic Exercises Supine Exercises Deadbug Supine Exercise Name with ball squeeze and alternating arms Reps/Minutes 3x10 bridge Reps/Minutes 2x15 Sitting Exercises Seated hip hinge Side bilateral Reps/Minutes 3x10 Standing Exercises standing hip hinge Side bilateral Resistance up to 20# Reps/Minutes 2x8 sit to stand Side bilateral Reps/Minutes 3x10 Comments cues for hinge then drive through legs Physical Therapy Assessment Goals Six Impairment Lumbar load tolerance Short Term Goal (STG Patient will lift 20# from the ground with proper ) mechanics and no increase in pain levels. Met - 07/30/2025 STG Duration 3 Egg Sorter Goal (LTG) Patient will report lifting 30# from the ground with proper mechanics and no increase in pain levels. In progress - 07/30/2025 LTG Duration 6 Five Impairment Walking tolerance Short Term Goal (STG Patient will report walking >30 mins with no increase ) in pain levels in order to better function with grocery shopping. Met (using a cart) - 07/30/2025 STG Duration 3 Egg Sorter Goal (LTG) Patient will report walking >40 mins with no increase in pain levels in order to better function with grocery shopping. Met (using a cart) - 07/30/2025 LTG Duration 6 Four Impairment unable to go up/down stairs with step over gait Short Term Goal (STG able to go up/down stairs with step over gait ) Met Three Impairment impaired R hip strength Short Term Goal (STG R hip strength improves to 4/5 - MET ) [facility] Duration 6 weeks Two Impairment pain with walking Short Term Goal (STG patient with 50% improved R hip and LBP with walking ) now 75% - Met [facility] Duration 6 weeks One Impairment lack of HEP Short Term Goal (STG patient demonstrates indep with HEP - MET ) [facility] Duration 6 weeks Assessment Summary Assessment Patient presenting to PT after 7 PT visits for low back pain. Patient has made improvement with function with getting into and out of her boat, walking in the grocery store, and general pain levels. Further investigation revealed improvement in lumbar load tolerance (see goal section: standing hinge), and general function (see subjective GROC). Because of progress noted above, and patient reported confidence with continuing management independently, today will be her last formal PT session. Plan of care will be discharged. Physical Therapy Plan Frequency and Duration Frequency of 1x/Week Treatment Duration of 6 treatment (weeks) Plan of Care Start 05/14/25 Date Plan of Care End 07/14/25 Date Next Visit Focus/Plan Next Note Type Discharge Summary Next Visit Plan N/A - discharge plan of care Reviewed new home exercises: - Sit to stand - Standing hip hinge - Deadbugs with nigerian ball
--- NOTE | 2025-07-30 08:24 | PT.OPDS ---
Current Diagnoses Pain in right hip (07/30/25) Sciatica, unspecified side (07/30/25) Vertebrogenic low back pain (07/30/25) Visit Care Team Role Provider Type Jamee Unger MD Attending Provider Non-Staff Primary Care Provider Referring Provider Specialty: Infectious Disease Internal Medicine Address: [address], [address] Email: Visit Number Visit Number 8 Discharge Summary PT OP: Lower Back/Lower Extremity Start: 05/09/25 09:10 Freq: Status: Active Protocol: Document 07/30/25 07:22 JZ (Rec: 07/30/25 08:18 JZ [id number]) Out-Patient Physical Therapy Visit Information Visit Information Visit Type Discharge Summary Visit Start Time 07:30 Visit Stop Time 08:15 Visit Number 8 Number of MIDDLE SCHOOL ENGLISH TEACHER Visits 0 Progress Note Due 08/29/25 OP-PT Subjective Patient Comments Patient Comments Patient reports she is doing a lot better overall since starting PT. She reports she has a 90% GROC. She reports that she still has a slight twinge in her R low back and she has had two spasms in the last month. She notes improvement in pain levels and activity levels. She also notes improvement with getting onto and off of her boat. She reports she feels comfortable with where she is at and would be confident continuing her home exercises independently. Therapeutic Exercises Supine Exercises Deadbug Supine Exercise Name with ball squeeze and alternating arms Reps/Minutes 3x10 bridge Reps/Minutes 2x15 Sitting Exercises Seated hip hinge Side bilateral Reps/Minutes 3x10 Standing Exercises standing hip hinge Side bilateral Resistance up to 20# Reps/Minutes 2x8 sit to stand Side bilateral Reps/Minutes 3x10 Comments cues for hinge then drive through legs Physical Therapy Assessment Goals Six Impairment Lumbar load tolerance Short Term Goal (STG Patient will lift 20# from the ground with proper ) mechanics and no increase in pain levels. Met - 07/30/2025 STG Duration 3 Prison Goal (LTG) Patient will report lifting 30# from the ground with proper mechanics and no increase in pain levels. In progress - 07/30/2025 LTG Duration 6 Five Impairment Walking tolerance Short Term Goal (STG Patient will report walking >30 mins with no increase ) in pain levels in order to better function with grocery shopping. Met (using a cart) - 07/30/2025 STG Duration 3 Prison Goal (LTG) Patient will report walking >40 mins with no increase in pain levels in order to better function with grocery shopping. Met (using a cart) - 07/30/2025 LTG Duration 6 Four Impairment unable to go up/down stairs with step over gait Short Term Goal (STG able to go up/down stairs with step over gait ) Met Three Impairment impaired R hip strength Short Term Goal (STG R hip strength improves to 4/5 - MET ) STG Duration 6 weeks Two Impairment pain with walking Short Term Goal (STG patient with 50% improved R hip and LBP with walking ) now 75% - Met STG Duration 6 weeks One Impairment lack of HEP Short Term Goal (STG patient demonstrates indep with HEP - MET ) STG Duration 6 weeks Assessment Summary Assessment Patient presenting to PT after 7 PT visits for low back pain. Patient has made improvement with function with getting into and out of her boat, walking in the grocery store, and general pain levels. Further investigation revealed improvement in lumbar load tolerance (see goal section: standing hinge), and general function (see subjective GROC). Because of progress noted above, and patient reported confidence with continuing management independently, today will be her last formal PT session. Plan of care will be discharged. Physical Therapy Plan Frequency and Duration Frequency of 1x/Week Treatment Duration of 6 treatment (weeks) Plan of Care Start 05/14/25 Date Plan of Care End 07/14/25 Date Next Visit Focus/Plan Next Note Type Discharge Summary Next Visit Plan N/A - discharge plan of care Reviewed new home exercises: - Sit to stand - Standing hip hinge - Deadbugs with kosovan ball
== END 2025-07-31 09:38 | disposition home or self-care (01) ==
LOC: PHYS 07:30
PROVIDERS: PCP Student in an Organized Health Care Education/Training Program; Referring Provider Student in an Organized Health Care Education/Training Program; Visit Provider Student in an Organized Health Care Education/Training Program
DX: M25.551 Pain in right hip (principal); M54.51 Vertebrogenic low back pain; M54.30 Sciatica, unspecified side
CPT/HCPCS: 97110; 97140; 97163